=== PATIENT | female | born 1955 | race Caucasian/White ===

== ENCOUNTER → 2021-05-21 13:07 | Outpatient (BNVA) | payer BC, SELFPAY | PROVIDERS: PCP Internal Medicine; Visit Provider Hospitalist ==

== ENCOUNTER → 2021-07-28 19:51 | Outpatient (REF) | payer BC, MEDICARE, SELFPAY | LOC: HO.SL 19:51 | PROVIDERS: PCP Internal Medicine; Visit Provider Hospitalist | DX: G47.33 Obstructive sleep apnea (adult) (pediatric) (principal) | CPT/HCPCS: 95810 ==

== ENCOUNTER → 2021-09-15 14:04 | Outpatient (BNVA) | payer BC, MEDICARE, SELFPAY | PROVIDERS: PCP Internal Medicine; Visit Provider Hospitalist ==

== ENCOUNTER 2022-03-15 15:21 | Outpatient (REF) | payer BC, MEDICARE, SELFPAY ==
[2022-03-15 15:34] LABS: MANUAL DIFF FLAG NO
[2022-03-15 16:06] LABS: Basophils Percent Auto 0.5 % (0-2); Eosinophils Absolute Auto 0.2 X10*3/uL (0.0-0.4); Eosinophils Percent Auto 3.3 % (0-4); Hematocrit 43.3 % (37.0-47.0); Imm Gran Abs Auto 0.02 X10*3/uL (0.00-0.03); Imm Gran Pct Auto 0.3 % (0.0-0.4); Lymphocytes Absolute Auto 2.2 X10*3/uL (1.2-4.9); Mean Corpuscular HGB Conc 32.3 g/dl (31.0-35.0); Mean Corpuscular Hemoglobin 30.2 pg (27.0-33.0); Mean Corpuscular Volume 93.5 fL (80.0-98.0); Mean Platelet Volume 10.7 fL (9.4-12.3); Monocytes Absolute Auto 0.6 X10*3/uL (0.1-1.2); Monocytes Percent Auto 9.2 % (2-11); Neutrophils Absolute Auto 3.4 x10*3/uL (2.0-8.3); Neutrophils Percent Auto 52.7 % (45-73); Platelet Count 272 X10*3/uL (160-400); Red Blood Count 4.63 X10*6/uL (4.20-5.50); Red Cell Distribution Width 14.4 % (11.0-16.0); White Blood Count 6.4 X10*3/uL (4.8-10.8)
[2022-03-15 16:24] LABS: Anion Gap 13 (12-20); Blood Urea Nitrogen 17 mg/dL (9-16); Calcium 9.3 mg/dL (8.4-10.2); Carbon Dioxide 29 mmol/L (22-29); Chloride 103 mmol/L (96-108); Estimated Glomerular Filt Rate > 60; Glucose Random 117 mg/dL (60-115); Potassium 4.7 mmol/L (3.3-5.1); Sodium 140 mmol/L (135-145)
[2022-03-15 17:39] LABS: Erythrocyte Sedimentation Rate 7 MM/HR (0-20)
[2022-03-17 18:56] LABS: Anti Nuclear Antibody Screen NEGATIVE (NEGATIVE)
== END 2022-03-15 15:22 | disposition home or self-care (01) ==
LOC: HO.LAB 15:21
PROVIDERS: PCP Internal Medicine; Visit Provider Hospitalist
DX: R53.83 Other fatigue (principal)
CPT/HCPCS: 36415; 80048; 82164; 85025; 85652; 86038; 86039

== ENCOUNTER 2022-08-11 11:08 | Outpatient (REF) | payer BC, MEDICARE, SELFPAY ==
[2022-08-11 11:22] LABS: MANUAL DIFF FLAG NO
[2022-08-11 12:25] LABS: Basophils Percent Auto 0.5 % (0-2); Eosinophils Absolute Auto 0.2 X10*3/uL (0.0-0.4); Eosinophils Percent Auto 3.6 % (0-4); Hematocrit 41.8 % (37.0-47.0); Hemoglobin 13.4 g/dl (12.0-16.0); Imm Gran Abs Auto 0.01 X10*3/uL (0.00-0.03); Imm Gran Pct Auto 0.2 % (0.0-0.4); Lymphocytes Absolute Auto 2.1 X10*3/uL (1.2-4.9); Lymphocytes Percent Auto 38.1 % (20-40); Mean Corpuscular HGB Conc 32.1 g/dl (31.0-35.0); Mean Corpuscular Hemoglobin 28.8 pg (27.0-33.0); Mean Corpuscular Volume 89.9 fL (80.0-98.0); Mean Platelet Volume 10.5 fL (9.4-12.3); Monocytes Absolute Auto 0.5 X10*3/uL (0.1-1.2); Monocytes Percent Auto 9.1 % (2-11); Neutrophils Absolute Auto 2.7 x10*3/uL (2.0-8.3); Neutrophils Percent Auto 48.5 % (45-73); Platelet Count 274 X10*3/uL (160-400); Red Blood Count 4.65 X10*6/uL (4.20-5.50); Red Cell Distribution Width 14.4 % (11.0-16.0); White Blood Count 5.6 X10*3/uL (4.8-10.8)
[2022-08-11 13:08] LABS: Erythrocyte Sedimentation Rate 7 MM/HR (0-20)
== END 2022-08-11 11:09 | disposition home or self-care (01) ==
LOC: HO.LAB 11:08
PROVIDERS: PCP Internal Medicine; Visit Provider Hospitalist
DX: R06.1 Stridor (principal)
CPT/HCPCS: 36415; 82785; 85025; 85652; 86003; 86160

== ENCOUNTER 2022-08-19 09:20 | Outpatient (REF) | payer BC, MEDICARE, SELFPAY ==
--- NOTE | ~2022-08-19 | CT_ITS ---
EXAMINATION: CT SOFT TISSUE NECK WITHOUT CONTRAST CLINICAL INFORMATION: Stridor. Dysphagia. COMPARISON: Barium swallow from 05/22/2020. TECHNIQUE: Multidetector helical imaging was performed in the axial plane without intravenous contrast. Multiple axial reformats and coronal/sagittal reconstructions were created the technologist workstation for review. This CT examination was performed using dose optimization techniques as appropriate, variously including the following: *Automated exposure control. *Adjustment of mA and/or kV according to patient size (this includes techniques or standardized protocols for targeted exams where dose is matched to indication/reason for exam; i.e. extremities or head). *Use of iterative reconstruction technique. DLP: 511 mGy-cm FINDINGS: Instrumented anterior fusion of C5-C7 with corpectomy cage in place of C6. There is anatomic alignment of the cervical spine. Moderate degenerative arthropathy of the atlantodental articulation. Moderate degenerative disc disease at C3-C4, C4-C5, and C7-T1. Facet and uncovertebral joint arthropathy leads to osseous encroachment on the neural foramina from C3-T1. No significant cutaneous thickening or subcutaneous inflammation. No discrete fluid collection within the deep tissues of the neck. The premaxillary, retromaxillary, pterygopalatine fossa, orbital apical, parapharyngeal, and prelaryngeal adipose tissue is maintained. Normal appearance of the parotid and submandibular glands. There is a 0.8 cm hypoattenuating nodule in the lower pole the right thyroid lobe (no follow-up imaging recommended based on current guidelines at the time of examination). No additional demonstrated abnormalities of the thyroid gland. Scattered subcentimeter lymph nodes bilaterally, none of which are pathologically enlarged. No demonstrated focal lesions within the intrinsic tissues of the tongue or floor of mouth. Normal mucosal contours of the pharynx and larynx. Normal appearance of the hyoid bone, thyroid cartilage, or cartilaginous trachea. The airways remains widely patent. No radiopaque foreign bodies. The atlantooccipital and atlantoaxial articulations remain well aligned. There is anatomic alignment of the vertebral bodies and posterior elements. No evidence of acute fracture or subluxation of the cervical spine. The vertebral body heights are maintained. The intervertebral disc spaces are maintained. There is no prevertebral soft tissue swelling. The visualized portion of the skull base is without significant abnormalities. Mild mucosal thickening of the visualized paranasal sinuses. The mastoid air cells and middle ear cavities are clear. The maxillary teeth are absent. CT Upper Chest: The visualized lung apices and upper mediastinum are within normal limits. CT/CT soft tissue neck wo IV con IMPRESSION: 1. Instrumented anterior fusion of C5-C7 with corpectomy cage in place of C6. Moderate multilevel degenerative spondyloarthropathy of the cervical spine. 2. No demonstrated focal lesion, collection, or lymphadenopathy within the soft tissues of the neck.
== END 2022-08-19 09:21 | disposition home or self-care (01) ==
LOC: HO.CT 09:20
PROVIDERS: PCP Internal Medicine; Visit Provider Hospitalist
DX: R06.1 Stridor (principal)
CPT/HCPCS: 70490

== ENCOUNTER → 2022-11-11 14:54 | Outpatient (BNVA) | payer BC, MEDICARE, SELFPAY | PROVIDERS: PCP Internal Medicine; Visit Provider Hospitalist | DX: R53.83 Other fatigue (principal) ==

== ENCOUNTER → 2023-01-20 14:45 | Outpatient (BNVA) | payer BC, MEDICARE, SELFPAY | PROVIDERS: PCP Internal Medicine; Visit Provider Hospitalist ==

== ENCOUNTER 2023-03-02 07:29 | Outpatient (REF) | payer BC, MEDICARE, SELFPAY ==
--- NOTE | ~2023-03-02 | XR_ITS ---
EXAMINATION: XR KNEE, RIGHT XR KNEE AP STANDING CLINICAL INFORMATION: Pain. COMPARISON: None available. TECHNIQUE: Lateral and axial views of the right knee were obtained. AP bilateral standing view of the knees was obtained. FINDINGS: Bony mineralization is normal. There is marked asymmetric narrowing of the right knee medial joint space compartment. The lateral joint space compartment of the right knee is well-maintained, with articular surface irregularity and peripheral osteophyte formation. There is chondrocalcinosis. There is marked narrowing of the right patellofemoral compartment, with peripheral osteophyte formation. No fracture, dislocation or right knee joint effusion is seen. The left knee shows moderate narrowing of the medial joint space compartment, and a well-maintained lateral joint space compartment. There is again chondrocalcinosis. There is a mild bilateral varus configuration. XR/XR knee RT 2V IMPRESSION: 1. There is tricompartment osteoarthritic change of the right knee, most severe of the medial and patellofemoral compartments. 2. There is moderate osteoarthritic change of the medial joint space compartment of the left knee. 3. There is a mild varus configuration. 4. There is chondrocalcinosis, which can be associated with CPPD.
--- NOTE | ~2023-03-02 | XR_ITS ---
EXAMINATION: XR KNEE, RIGHT XR KNEE AP STANDING CLINICAL INFORMATION: Pain. COMPARISON: None available. TECHNIQUE: Lateral and axial views of the right knee were obtained. AP bilateral standing view of the knees was obtained. FINDINGS: Bony mineralization is normal. There is marked asymmetric narrowing of the right knee medial joint space compartment. The lateral joint space compartment of the right knee is well-maintained, with articular surface irregularity and peripheral osteophyte formation. There is chondrocalcinosis. There is marked narrowing of the right patellofemoral compartment, with peripheral osteophyte formation. No fracture, dislocation or right knee joint effusion is seen. The left knee shows moderate narrowing of the medial joint space compartment, and a well-maintained lateral joint space compartment. There is again chondrocalcinosis. There is a mild bilateral varus configuration. XR/XR knee standing BI IMPRESSION: 1. There is tricompartment osteoarthritic change of the right knee, most severe of the medial and patellofemoral compartments. 2. There is moderate osteoarthritic change of the medial joint space compartment of the left knee. 3. There is a mild varus configuration. 4. There is chondrocalcinosis, which can be associated with CPPD.
== END 2023-03-02 07:30 | disposition home or self-care (01) ==
LOC: HO.HOSX 07:29
PROVIDERS: Visit Provider Orthopaedic Surgery
DX: M25.561 Pain in right knee (principal); M25.562 Pain in left knee
CPT/HCPCS: 73560; 73565

== ENCOUNTER → 2023-03-03 08:14 | Outpatient (BNVA) | payer BC, MEDICARE, SELFPAY | PROVIDERS: PCP Internal Medicine; Visit Provider Orthopaedic Surgery | DX: M17.0 Bilateral primary osteoarthritis of knee (principal) | CPT/HCPCS: 20610; J3301 ==

== ENCOUNTER 2023-05-23 09:40 | Outpatient (AMB) | payer BC, MEDICARE, SELFPAY ==
--- NOTE | 2023-05-23 09:45 | A.OFFVIS_ITS ---
Intake Vital Signs 05/23/23 09:46 Height 5 ft 6 in Weight 279 lb 15.793 oz BMI 45.2 Pulse 87 Pulse Source Pulse Oximeter Pulse Oximetry (%) 98 Oxygen Delivery Method Room Air Intake Visit Reasons: Sleep apnea Wrapping Machine Tender Required: No Allergies atorvastatin [Lipitor] Allergy (Severe, Verified 05/23/23 09:47) Muscle Spasm cephalexin Allergy (Severe, Verified 05/23/23 09:47) Rash Povidone-Iodine Allergy (Severe, Uncoded 05/23/23 09:47) Rash Sulfa Drugs Allergy (Severe, Uncoded 05/23/23 09:47) Rash HPI HPI Comments History of Present Illness Details The patient is a 68-year-old woman with a known history of carcinoid. Ultimately had abnormal findings of lymphadenopathy a along with FDG uptake in [place] and was recommended to undergo endobronchial ultrasound bronchoscopy. The fine- needle aspirate was positive for non-necrotizing granulomas suspicious for sarcoidosis. She at that time she was having some cardiac symptoms with palpitations and shortness of breath and the recommendation of the time was to follow up with a evaluation for cardiac sarcoid. It is not clear if the patient did have a dedicated cardiac PET or a cardiac MRI. Her symptoms did improve and she was able to come off the prednisone safely. At this point the concern is that she is still having issues with her active carcinoid. She is going to go undergo additional therapies to see if she has to candidate for alternative therapies at this time. During the last visit she was started on Trelegy with good effect. Her respiratory status has significantly improved. She also started Singulair which also helped her allergies. We did try treating her nasal passages with budesonide rinsing, but, she could not tolerate the therapy after 4 days because of severe headaches. Otherwise patient is doing well will be following up in [place] for additional therapies and evaluation for her carcinoid. She did have [place] [facility] [place] did I do not have the results. She was told that there is no evidence of any active disease anywhere. The patient will undergo endoscopy suite GI to further address the question. In the meantime the question of the sarcoid. We'll have to review the PET scan to see if there's any mediastinal activity like she had in the past. It is possible that this is dormant now. The patient also has some lightheadedness and nausea sensation. It appears that she has a little nystagmus on examination. ? 09/15/2021 the patient is here for a pulmonary follow-up visit. Overall she has been doing well. She still continues to have daytime drowsiness. Her Roosevelt score is elevated 13/24. She did have a sleep study demonstrating significant REM related sleep disorder with an elevated AHI consistent moderate to severe LENA. the patient needs to start PAP therapy AMILCAR. She understands that there is a supply demand issue now with the pandemic. But, will get her a machine as soon as possible. In the meantime she continues use respiratory therapy although she still complains of dyspnea and chest tightness. The patient responded well to Trelegy in the past but was not covered. Will go ahead and add Spiriva to her current regimen of Dulera. I am hopeful that her daytime drowsiness is improves. If the patient continues with daytime drowsiness even after effectively treating his sleep apnea then we can discuss the question of the use stimulant therapy. She had use Ritalin in the past but she did not feel comfortable using it. 03/17/2022 the patient is here for a pulmonary follow-up visit. Today she is extremely fatigued. She cannot drive so therefore has been a drinker. She continues to have significant daytime drowsiness. She has been using her CPAP. The CPAP therapy has been affecting beneficial. She is using more than 4 hours a night in her AHI is within normal limits. She continues to have persistent daytime drowsiness even after effective PAP therapy. She is on Ritalin. She is supposed to use it twice a day but she has been concerned about doing so. The patient also appears to be pale. Will go ahead and check some blood work including her hemoglobin to make sure that is not anemia related. But if not I will call her to see if she can increase the Ritalin to twice a day. If the Ritalin is not effective then she should speak to her provider in [place] about switching her to Nuvigil as an alternative. In the meantime she continues to be on the octreotide for her carcinoid next Plain to her that this is likely the culprit of her ongoing Clamminess and tiredness. The patient continues with respiratory therapy. Denies any shortness of breath or any wheezing or tightness. Asthma appears to be in good control. 05/13/2022 the patient is here for a pulmonary follow-up visit. Since we last spoke she did increase the Ritalin to twice a day. She did notice a slight improvement in her energy but still with significant fatigue. The patient does have to take naps during the daytime. She does fall asleep. His Roosevelt score significantly elevated at 15 over 24. she is using her CPAP. However, she averages only about 4 hours. Partly is because she has a hard time falling asleep. She did have the Ambien but she is not using it as much because she is wondering if that is making her tired. We talked about other stimulants. At this point since she has tried and failed the full dose of Ritalin go ahead and switch her to a different type of stimulant such as Nuvigil. I will send the prescription to the pharmacy. In the meantime under download of her CPAP her AHI is below 5. However, it is averaging at 4.5. Her average pressure is closer to 12 cm. Therefore I will increase her minimum pressure from 8-10 cm. She is going to try the higher pressure. If she has any difficulties tolerating it she will call me in a adjusted back down. I am hopeful that we can maximize her CPAP therapy. Patient also understands that she needs to be able to sleep at least 6 hours. Therefore she should try not to nap during the daytime. We did review all her blood work which was all reassuring. She continues on the octreotide for her carcinoid. 07/08/2022 the patient is here for a pulmonary follow-up visit. Overall she is doing a little better. She responded positively to the Nuvigil. She is currently taking 150 mg in the morning. She is no longer using the Ambien which is excellent. She is tolerating her CPAP although she does complaint sometimes the mask this largest and causes her to choke up. The mask is old and hopefully the new mask would fit better. If not then I did recommend she can meet with the [facility] for mask clinic and refitting. The patient was recently diagnosed with diabetes. She is wondering if her sugar was could result in the sweating in the ongoing constitutional symptoms that she had been describing. She is working closely with Endocrinology. She still complains of dyspnea on exertion and also complains of daytime drowsiness. Her Roosevelt score still elevated at 8 over 24. but at this point do not want increase her medication further. She is actually exercising she is losing weight which is reassuring as well. I do believe that all these are positive changes that will help her. 08/11/2022 the patient is here for sick visit. For the last 2 weeks she has been having sudden onset shortness of breath. Difficult to breathe then and also breathe out. Feels like she is choking. Has a hard time speaking with she is having episode. The episodes have been a different times of the day. Sometimes she is sleeping and sometimes she is awake. Not related to eating. She has noticed increased itchiness of her skin. She denies any evidence of any angioedema although not sure. Denies any itching send her mouth. The patient has never had any evidence of any anaphylaxis. She does describe evidence of stridor when she is having the episodes. She does try to use her inhaler but is not helpful. Usually the symptoms last for several minutes and then subside. Sometimes she can have an episode followed by another 1 that makes a very scary for her. She had call the office and have recommended she go to the ER. In the mid appointment today. She did not have to go to the ER however. Today she does feel better. She has not had an episode today. Explained to the patient that it appears that these are either episodes of laryngeal spasms Versus localized angioedema. She has been taking Zyrtec with some improvement of the symptoms. I will provide her with an EpiPen just in case she has an episode that does not break. I did have our nurse teacher in the office to make sure. Will also and have her undergo blood work including allergy testing. The patient already is taking gabapentin. The patient does have a history of carcinoid tumor. She is wondering if this is related. Will have her undergo a CT scan of the neck soft tissue to assess for any evidence of any carcinoid in the proximity of the airway. The meantime she is going to continue the reflux diet and will start sleeping elevated in using nasal rinsing. If the patient continues having episodes then ENT evaluation or endoscopy may be warranted. 11/12/2022 the patient is here for a pulmonary follow-up visit. She has multiple complaints. First the Nuvigil was very effective in treating her chronic fatigue. However, now she has not been able to get it. We switched over to Provigil and has not been the same. She is wondering if she should go back on the Ritalin that seem to be working better for her. Will go ahead and plan to increase her Provigil to the 200 mg doses see this is more effective. In the meantime will also to see if we can try to get her on the correct medication. Unfortunately he has been on back order at multiple pharmacies. In the meantime she is also struggling with her sleep. She had weaned off the Ambien but now feels that she does need the Ambien to fall asleep. Otherwise she is not having effective sleep. I do believe that using the Ambien as needed would be okay for now. But hopefully as she increases the from visual or goes back on the initial stimulant then hopefully she will needed as much. When she does sleep she does use her CPAP. The CPAP therapy continues to be affecting beneficial she does use more than 4 hours a night. The need to request a download to assess the effectiveness of the therapy. As part of the workup the patient did undergo an echocardiogram. It was will limited windows do likely body habitus. The patient does appear to have a slightly mild dilated right ventricle although the pulmonary pressures could not be estimated. We did talk about underlying pulmonary hypertension and she has multiple reasons to have some pulmonary hypertension including minimal diastolic dysfunction and also underlying sleep apnea that may and may not be treated effectively if she is not sleeping well. Therefore, hopefully will get her to sleep better and will req uest a download to make sure she is getting effective therapy and she will follow up with Cardiology. 05/23/2023 the patient is here for a sick visit. He has been having worsening respiratory symptoms. The patient did recover from COVID-19. He has been having increasing dyspnea on exertion. She is also documented a lower pulse ox and normal for her. She was evaluated by primary care who placed her on antibiotics and prednisone after her COVID infection. However no significant improvement. She was also having other constitutional symptoms. She did undergo additional imaging studies for her brain and also underwent a CT scan of the chest at [facility]. I did personally reviewed. The patient did have small subcentimeter pulmonary nodules that will require a repeat CT scan in a year's time. In addition to that the patient had a dilated pulmonary trunk again suggesting pulmonary hypertension. She does have increased lower extremity edema. Therefore do believe that additional diuresis his champagne in view of her right-sided volume overload status. This could definitely be contributing to her dyspnea symptoms. The patient did go for 6 minute walk test. It was noted that she was very tachycardic but her pulse ox was stable which is reassuring. In view of her symptoms and findings we did have her undergo a blood work including a D-dimer which was indeed elevated. I did contact the patient about it the patient will be scheduled to undergo a urgent CTA to rule out blood clots. In the meantime she is aware that if her symptoms worsen she is to go to the ER to get an emergent CTA. the patient also has been struggling with her CPAP mask. The strap in the back has been hurting her neck and she has a hard time sleeping. We did provide her with an N30 I mask which has a different head gear and may hopefully minimize her neck discomfort. She knows to get a chinstrap in order for it to be more effective for her. [facility] Medical History (Updated 05/23/23 @ 19:56 by George Masters MD) CHF (congestive heart failure) Pulmonary hypertension Stridor Has daytime drowsiness Fatigue Sarcoidosis Carcinoid tumor Asthma LENA (obstructive sleep apnea) Social History (Updated 05/21/21 @ 13:31 by Noa Gerber Kashif) Patient Tobacco Use Status: Never used Tobacco Review of Systems Const Reports daytime sleepiness, Reports difficulty sleeping, Denies night sweats, Denies snoring and Reports weight loss ENT Denies change in voice, Denies lip swelling, Denies mouth pain, Reports nasal congestion, Reports nasal discharge and Denies tongue swelling Card Reports chest pain, Reports leg edema, Reports palpitations, Reports dyspnea and Reports dyspnea on exertion Resp Reports cough, Reports pain on inspiration, Reports pain with cough, Reports dyspnea, Reports dyspnea on exertion and Denies snoring GI Denies abdominal pain Musc Denies no additional complaints Neuro Denies Neuro-related abnormal movements Psych Denies no additional complaints Endo Reports flushing and Reports palpitations Steve/Lymph Denies easy bleeding and Denies lymphadenopathy Aller/Immun Denies lip swelling and Denies tongue swelling Physical Exam Vital Signs: Last Vital Signs Pulse 87 05/23/23 09:46 Pulse Ox 98 05/23/23 09:46 Oxygen Delivery Method Room Air 05/23/23 09:46 BMI result Body Mass Index 45.2 Const General: comfortable Nutritional Appearance: overweight Neck Neck: Yes normal visual inspection, Yes full ROM and Yes no lymphadenopathy Chest Chest palpation & inspection: normal inspection of the chest Resp Auscultation: diminished lung sounds Cardio Rate: regular rate Rhythm: regular rhythm Heart sounds: S1 normal heart sound present and S2 normal heart sound present GI Palpation (GI): Soft to palpation and nontender Auscultation: normal bowel sounds Skin General skin exam: rashes and/or lesions noted Extrem General: No clubbing, No cyanosis and Yes edema Assessment & Plan Assessment & Plan (1) LENA (obstructive sleep apnea): Code(s): G47.33 - Obstructive sleep apnea (adult) (pediatric) (2) Asthma: Code(s): J45.909 - Unspecified asthma, uncomplicated Qualifiers: Asthma complication type: uncomplicated Asthma persistence: persistent Asthma severity: moderate Qualified Code(s): J45.40 - Moderate persistent asthma, uncomplicated (3) Carcinoid tumor: Comment: On Octrotide. The adherace has been hard for the patient Code(s): D3A.00 - Benign carcinoid tumor of unspecified site Qualifiers: Carcinoid tumor location: unspecified site Carcinoid tumor malignancy status: benign Qualified Code(s): D3A.00 - Benign carcinoid tumor of unspecified site (4) Has daytime drowsiness: Code(s): R40.0 - Somnolence (5) Pulmonary hypertension: Comment: mild RV dilation, but could not estimate PA pressures. Code(s): I27.20 - Pulmonary hypertension, unspecified (6) Chest pain: Code(s): R07.9 - Chest pain, unspecified (7) Blood D-dimer assay positive: Code(s): R78.89 - Finding of other specified substances, not normally found in blood Plan Bloodwork with +ddimer, will request CTA Increase lasix x 3 days continue Zyrtec continue Trazodone for sleep Continue singular continue Dulera continue Spiriva short-acting beta agonist as needed weight management continue APAP 10-18, trial N30i mask continue Provigil 200mg follow-up in 4-6 months Orders: Orders Venous Blood Gas Today I27.20 - Pulmonary hypertension, unspecified, I50.9 - Heart failure, unspecified, R07.9 - Chest pain, unspecified Complete Blood Count Auto Diff Today I27.20 - Pulmonary hypertension, unspecified, I50.9 - Heart failure, unspecified, R07.9 - Chest pain, unspecified B Type Natriuretic Peptide Today I27.20 - Pulmonary hypertension, unspecified, I50.9 - Heart failure, unspecified, R07.9 - Chest pain, unspecified Basic Metabolic Panel Today I27.20 - Pulmonary hypertension, unspecified, I50.9 - Heart failure, unspecified, R07.9 - Chest pain, unspecified Troponin-I High Sensitivity Today I27.20 - Pulmonary hypertension, unspecified, I50.9 - Heart failure, unspecified, R07.9 - Chest pain, unspecified D Dimer High Sensitivity Today I27.20 - Pulmonary hypertension, unspecified, I50.9 - Heart failure, unspecified, R07.9 - Chest pain, unspecified Erythrocyte Sedimentation Rate Today I27.20 - Pulmonary hypertension, unspecified, I50.9 - Heart failure, unspecified, R07.9 - Chest pain, unspecified Medications: New furosemide (Lasix) 20 mg PO DAILY PRN 14 tabs 0RF edema 14 days Coding Level of Care Code Est Pt Level 5 (03950) Diagnoses LENA (obstructive sleep apnea) G47.33 Moderate persistent asthma without complication J45.40 Asthma complication type: uncomplicated Asthma persistence: persistent Asthma severity: moderate Benign carcinoid tumor, unspecified site D3A.00 Carcinoid tumor location: unspecified site Carcinoid tumor malignancy status: benign Has daytime drowsiness R40.0 Pulmonary hypertension I27.20 Chest pain R07.9 Blood D-dimer assay positive R78.89 Time Spent (min) 60
[2023-05-23 09:46] VITALS: PULSE 87; O2SAT 98; BMI 45.2
== END 2023-05-23 10:28 | disposition home or self-care (01) ==
PROVIDERS: PCP Internal Medicine; Visit Provider Hospitalist
DX: G47.33 Obstructive sleep apnea (adult) (pediatric) (principal); J45.40 Moderate persistent asthma, uncomplicated; D3A.00 Benign carcinoid tumor of unspecified site; R40.0 Somnolence
CPT/HCPCS: 99215

== ENCOUNTER 2023-05-23 09:40 | Outpatient (REF) | payer BC, MEDICARE, SELFPAY ==
[2023-05-23 10:55] LABS: MANUAL DIFF FLAG NO
[2023-05-23 11:08] LABS: Basophils Percent Auto 0.4 % (0-2); Eosinophils Absolute Auto 0.1 X10*3/uL (0.0-0.4); Eosinophils Percent Auto 2.7 % (0-4); Hematocrit 40.2 % (37.0-47.0); Imm Gran Abs Auto 0.01 X10*3/uL (0.00-0.03); Imm Gran Pct Auto 0.2 % (0.0-0.4); Lymphocytes Absolute Auto 1.6 X10*3/uL (1.2-4.9); Lymphocytes Percent Auto 35.2 % (20-40); Mean Corpuscular HGB Conc 32.3 g/dl (31.0-35.0); Mean Corpuscular Volume 89.7 fL (80.0-98.0); Mean Platelet Volume 9.9 fL (9.4-12.3); Monocytes Absolute Auto 0.5 X10*3/uL (0.1-1.2); Monocytes Percent Auto 11.3 % (2-11); Neutrophils Absolute Auto 2.3 x10*3/uL (2.0-8.3); Neutrophils Percent Auto 50.2 % (45-73); Platelet Count 279 X10*3/uL (160-400); Red Blood Count 4.48 X10*6/uL (4.20-5.50); Red Cell Distribution Width 13.8 % (11.0-16.0); White Blood Count 4.5 X10*3/uL (4.8-10.8)
[2023-05-23 11:10] LABS: VBG Base Excess 3.4 mmol/L; VBG HCO3 28 mmol/L (22-26); VBG pCO2 45 mmHg; VBG pO2 36 mmHg
[2023-05-23 11:30] LABS: D Dimer High Sensitivity 293 NG/ML
[2023-05-23 11:31] LABS: Anion Gap 15 (12-20); B Type Natriuretic Peptide 32 pg/mL (<100); Blood Urea Nitrogen 12 mg/dL (9-16); Calcium 9.7 mg/dL (8.4-10.2); Carbon Dioxide 25 mmol/L (22-29); Chloride 107 mmol/L (96-108); Estimated Glomerular Filt Rate > 60; Glucose Random 118 mg/dL (60-115); Potassium 3.6 mmol/L (3.3-5.1); Sodium 143 mmol/L (135-145)
[2023-05-23 11:34] LABS: Troponin-I High Sensitivity < 2.7 ng/L (<3.5-17.0)
[2023-05-23 11:59] LABS: Erythrocyte Sedimentation Rate 16 MM/HR (0-20)
[2023-05-23 12:11] LABS: Venous Blood Gas Refer to POC result
== END 2023-05-23 09:41 | disposition home or self-care (01) ==
LOC: HO.LAB 09:40
PROVIDERS: PCP Internal Medicine; Visit Provider Hospitalist
DX: I50.9 Heart failure, unspecified (principal); I27.20 Pulmonary hypertension, unspecified; R07.9 Chest pain, unspecified; R06.00 Dyspnea, unspecified; G47.33 Obstructive sleep apnea (adult) (pediatric); J45.40 Moderate persistent asthma, uncomplicated; D3A.00 Benign carcinoid tumor of unspecified site; R40.0 Somnolence; R78.89 Finding of other specified substances, not normally found in blood
CPT/HCPCS: 36415; 80048; 82803; 83880; 84484; 85025; 85379; 85652

== ENCOUNTER 2023-05-24 15:05 | Outpatient (REF) | payer BC, MEDICARE, SELFPAY ==
--- NOTE | ~2023-05-24 | CT_ITS ---
EXAMINATION: CT ANGIOGRAM OF THE CHEST WITH AND WITHOUT CONTRAST (CT PULMONARY ANGIOGRAM FOR PE) CLINICAL INFORMATION: Reason for Exam R07.9 - Chest pain, unspecified COMPARISON: None available. TECHNIQUE: Prior to contrast administration, noncontrast localization images were obtained. Subsequently, multidetector volumetric imaging was performed from the thoracic inlet to below the diaphragms following the administration of 65 mL Omnipaque 350 intravenous contrast. No contrast reaction reported Sagittal, coronal, and MIP oblique sagittal reformatted images were obtained on the CT workstation, uploaded to PACS, and reviewed. This CT examination was performed using dose optimization techniques as appropriate, variously including the following: *Automated exposure control *Adjustment of mA and/or kV according to patient size (this includes techniques or standardized protocols for targeted exams where dose is matched to indication/reason for exam; i.e. extremities or head) *Use of iterative reconstruction technique Total exam dose-length product 197 mGy-cm FINDINGS: QUALITY OF STUDY/CONTRAST BOLUS: Satisfactory. PULMONARY ARTERIES: No pulmonary emboli. THORACIC AORTA: No aneurysm. LUNG: No focal consolidation, nodules or masses. Low lung volumes and atelectasis PLEURA: No pleural effusion or pneumothorax. MEDIASTINUM: Normal heart size. No pericardial effusion. No hilar or mediastinal lymphadenopathy. No evidence of septal bowing or right heart strain. 1.5 x 2 cm right thyroid nodule. CORONARY ARTERY CALCIFICATION: None visualized on this study. CHEST WALL/AXILLA: No axillary or internal mammary lymphadenopathy. OSSEOUS STRUCTURES: No acute or suspicious osseous abnormality. Degenerative changes thoracic spine. Postsurgical changes to the cervical spine. UPPER ABDOMEN: 1 cm low-attenuation lesion difficult to characterize. Gallbladder has been removed. No reflux of contrast into the hepatic veins to suggest elevated right heart pressures. CT/CT angio chest PE protocol IMPRESSION: No evidence of pulmonary embolism. Low lung volumes and dependent atelectasis at the lung bases. 1.5 x 2 cm right thyroid nodule. Follow-up thyroid ultrasound recommended. VTE: negative
[2023-05-24] MEDS: iohexoL 350 MG/ML 100 ML INFUS..BTL 65 ML IV (15:51)
== END 2023-05-24 15:06 | disposition home or self-care (01) ==
LOC: HO.CT 15:05
PROVIDERS: PCP Internal Medicine; Visit Provider Hospitalist
DX: R07.9 Chest pain, unspecified (principal)
CPT/HCPCS: 71275; Q9967

== ENCOUNTER 2023-09-01 13:09 | Outpatient (AMB) | payer BC, MEDICARE, SELFPAY ==
--- NOTE | 2023-09-01 13:15 | MHC.OFFVIS ---
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 Ultimately had abnormal findings of lymphadenopathy a along with FDG uptake in [place] and was recommended to undergo endobronchial ultrasound bronchoscopy. The fine-needle aspirate was positive for non-necrotizing granulomas suspicious for sarcoidosis. She at that time she was having some cardiac symptoms with palpitations and shortness of breath and the recommendation of the time was to follow up with a evaluation for cardiac sarcoid. It is not clear if the patient did have a dedicated cardiac PET or a cardiac MRI. Her symptoms did improve and she was able to come off the prednisone safely. At this point the concern is that she is still having issues with her active carcinoid. She is going to go undergo additional therapies to see if she has to candidate for alternative therapies at this time. During the last visit she was started on Trelegy with good effect. Her respiratory status has significantly improved. She also started Singulair which also helped her allergies. We did try treating her nasal passages with budesonide rinsing, but, she could not tolerate the therapy after 4 days because of severe headaches. Otherwise patient is doing well will be following up in [place] for additional therapies and evaluation for her carcinoid. She did have a PET scan at [facility] she did I do not have the results. She was told that there is no evidence of any active disease anywhere. The patient will undergo endoscopy suite GI to further address the question. In the meantime the question of the sarcoid. We'll have to review the PET scan to see if there's any mediastinal activity like she had in the past. It is possible that this is dormant now. The patient also has some lightheadedness and nausea sensation. It appears that she has a little nystagmus on examination. ? 07/08/2022 the patient is here for a pulmonary follow-up visit. Overall she is doing a little better. She responded positively to the Nuvigil. She is currently taking 150 mg in the morning. She is no longer using the Ambien which is excellent. She is tolerating her CPAP although she does complaint sometimes the mask this largest and causes her to choke up. The mask is old and hopefully the new mask would fit better. If not then I did recommend she can meet with the [facility] for mask clinic and refitting. The patient was recently diagnosed with diabetes. She is wondering if her sugar was could result in the sweating in the ongoing constitutional symptoms that she had been describing. She is working closely with Endocrinology. She still complains of dyspnea on exertion and also complains of daytime drowsiness. Her [place] score still elevated at 8 over 24. but at this point do not want increase her medication further. She is actually exercising she is losing weight which is reassuring as well. I do believe that all these are positive changes that will help her. 11/12/2022 the patient is here for a pulmonary follow-up visit. She has multiple complaints. First the Nuvigil was very effective in treating her chronic fatigue. However, now she has not been able to get it. We switched over to Provigil and has not been the same. She is wondering if she should go back on the Ritalin that seem to be working better for her. Will go ahead and plan to increase her Provigil to the 200 mg doses see this is more effective. In the meantime will also to see if we can try to get her on the correct medication. Unfortunately he has been on back order at multiple pharmacies. In the meantime she is also struggling with her sleep. She had weaned off the Ambien but now feels that she does need the Ambien to fall asleep. Otherwise she is not having effective sleep. I do believe that using the Ambien as needed would be okay for now. But hopefully as she increases the from visual or goes back on the initial stimulant then hopefully she will needed as much. When she does sleep she does use her CPAP. The CPAP therapy continues to be affecting beneficial she does use more than 4 hours a night. The need to request a download to assess the effectiveness of the therapy. As part of the workup the patient did undergo an echocardiogram. It was will limited windows do likely body habitus. The patient does appear to have a slightly mild dilated right ventricle although the pulmonary pressures could not be estimated. We did talk about underlying pulmonary hypertension and she has multiple reasons to have some pulmonary hypertension including minimal diastolic dysfunction and also underlying sleep apnea that may and may not be treated effectively if she is not sleeping well. Therefore, hopefully will get her to sleep better and will request a download to make sure she is getting effective therapy and she will follow up with Cardiology. 05/23/2023 the patient is here for a sick visit. He has been having worsening respiratory symptoms. The patient did recover from COVID-19. He has been having increasing dyspnea on exertion. She is also documented a lower pulse ox and normal for her. She was evaluated by primary care who placed her on antibiotics and prednisone after her COVID infection. However no significant improvement. She was also having other constitutional symptoms. She did undergo additional imaging studies for her brain and also underwent a CT scan of the chest at [facility]. I did personally reviewed. The patient did have small subcentimeter pulmonary nodules that will require a repeat CT scan in a year's time. In addition to that the patient had a dilated pulmonary trunk again suggesting pulmonary hypertension. She does have increased lower extremity edema. Therefore do believe that additional diuresis his champagne in view of her right-sided volume overload status. This could definitely be contributing to her dyspnea symptoms. The patient did go for 6 minute walk test. It was noted that she was very tachycardic but her pulse ox was stable which is reassuring. In view of her symptoms and findings we did have her undergo a blood work including a D-dimer which was indeed elevated. I did contact the patient about it the patient will be scheduled to undergo a urgent CTA to rule out blood clots. In the meantime she is aware that if her symptoms worsen she is to go to the ER to get an emergent CTA. the patient also has been struggling with her CPAP mask. The strap in the back has been hurting her neck and she has a hard time sleeping. We did provide her with an N30 I mask which has a different head gear and may hopefully minimize her neck discomfort. She knows to get a chinstrap in order for it to be more effective for her. 09/01/2023 the patient is here for a pulmonary follow-up visit. She is feeling overall a lot better. She did get a 2nd opinion regarding her carcinoid and the decision was to hold off on her octreotide therapy since her studies and blood work were reassuring. She has been off the octreotide since the summer. Her constitutional symptoms have overall improved. Her respiratory status has also improved. She also still has her inhalers although she does not require them as often. Denies significant shortness of breath. The patient did have an evaluation with me over the fall. She was having some shortness of breath and tachycardia. Her D-dimer had been elevated and we did go ahead request a CTA. No evidence of any pulmonary emboli. the patient did have some dependent atelectasis and also a thyroid nodule. She had a thyroid nodule evaluated in the past and did have a biopsy also in the past. 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 Will make a referral this time. The patient is also having significant neck pain. She is being already evaluated by Neurosurgery she may need additional surgical interventions. For now though she is doing well from a respiratory status. She continues on the Provigil since his providing some improvement. She is not using her CPAP. The patient is still having some difficulties wearing the head gear because of the neck pain and also having hard time sleeping. Will continue the medicine this time although will consider decreasing in the near future. [facility] Medical History (Updated 09/01/23 @ 13:38 by George Masters MD) Thyroid nodule CHF (congestive heart failure) Pulmonary hypertension Stridor Has daytime drowsiness Fatigue Sarcoidosis Carcinoid tumor Asthma LENA (obstructive sleep apnea) Social History (Updated 05/21/21 @ 13:31 by KEHINDE Hong) Patient Tobacco Use Status: Never used Tobacco Review of Systems Const Reports daytime sleepiness, Reports difficulty sleeping, Denies night sweats, Denies snoring and Reports weight loss ENT Denies change in voice, Denies lip swelling, Denies mouth pain, Reports nasal congestion, Reports nasal discharge, Reports neck pain and Denies tongue swelling Card Reports chest pain, Reports leg edema, Reports palpitations, Reports dyspnea and Reports dyspnea on exertion Resp Reports cough, Reports pain on inspiration, Reports pain with cough, Reports dyspnea, Reports dyspnea on exertion and Denies snoring GI Denies abdominal pain Musc Denies no additional complaints, Reports neck pain and Reports tingling Neuro Denies Neuro-related abnormal movements, Reports tingling and Reports paresthesias Psych Denies no additional complaints Endo Reports flushing and Reports palpitations Steve/Lymph Denies easy bleeding and Denies lymphadenopathy Aller/Immun Denies lip swelling and Denies tongue swelling Physical Exam Vital Signs: Last Vital Signs Pulse 89 09/01/23 13:18 Pulse Ox 94 09/01/23 13:18 Oxygen Delivery Method Room Air 09/01/23 13:18 BMI result Body Mass Index 45.2 Const General: comfortable Nutritional Appearance: overweight Neck Neck: Yes normal visual inspection, Yes full ROM and Yes no lymphadenopathy Chest Chest palpation & inspection: normal inspection of the chest Resp Effort & Inspection: normal respiratory effort Auscultation: clear to auscultation bilaterally Cardio Rate: regular rate Rhythm: regular rhythm Heart sounds: S1 normal heart sound present and S2 normal heart sound present GI Palpation (GI): Soft to palpation and nontender Auscultation: normal bowel sounds Skin General skin exam: rashes and/or lesions noted Extrem General: No clubbing, No cyanosis and Yes edema Assessment & Plan Assessment & Plan (1) LENA (obstructive sleep apnea): Code(s): G47.33 - Obstructive sleep apnea (adult) (pediatric) (2) Asthma: Code(s): J45.909 - Unspecified asthma, uncomplicated Qualifiers: Asthma complication type: uncomplicated Asthma persistence: persistent Asthma severity: moderate Qualified Code(s): J45.40 - Moderate persistent asthma, uncomplicated (3) Carcinoid tumor: Comment: Now off Octrotide. Code(s): D3A.00 - Benign carcinoid tumor of unspecified site Qualifiers: Carcinoid tumor location: unspecified site Carcinoid tumor malignancy status: benign Qualified Code(s): D3A.00 - Benign carcinoid tumor of unspecified site (4) Has daytime drowsiness: Code(s): R40.0 - Somnolence (5) Pulmonary hypertension: Comment: mild RV dilation, but could not estimate PA pressures. Code(s): I27.20 - Pulmonary hypertension, unspecified (6) Thyroid nodule: Code(s): E04.1 - Nontoxic single thyroid nodule Plan continue Zyrtec continue Trazodone for sleep Continue singular continue Dulera continue Spiriva continue Tessalon pearfranco short-acting beta agonist as needed weight management should continue APAP 10-18, trial N30i mask continue Provigil 200mg Endocrine referral (Dr Crocker saw her in the past) Tessalon zachary as needed follow-up in 6-8 months Orders: Referrals Endocrinology Referral E04.1 - Nontoxic single thyroid nodule Medications: Refilled benzonatate 200 mg PO BID 30 days PRN 60 caps 6RF cough Coding Level of Care Code Est Pt Level 4 (64402) Diagnoses LENA (obstructive sleep apnea) G47.33 Moderate persistent asthma without complication J45.40 Asthma complication type: uncomplicated Asthma persistence: persistent Asthma severity: moderate Benign carcinoid tumor, unspecified site D3A.00 Carcinoid tumor location: unspecified site Carcinoid tumor malignancy status: benign Has daytime drowsiness R40.0 Pulmonary hypertension I27.20 Thyroid nodule E04.1 Time Spent (min) 17
[2023-09-01 13:18] VITALS: PULSE 89; O2SAT 94; BMI 45.2
== END 2023-09-01 13:46 | disposition home or self-care (01) ==
PROVIDERS: PCP Internal Medicine; Visit Provider Hospitalist
DX: G47.33 Obstructive sleep apnea (adult) (pediatric) (principal); J45.40 Moderate persistent asthma, uncomplicated; D3A.00 Benign carcinoid tumor of unspecified site; R40.0 Somnolence; I27.20 Pulmonary hypertension, unspecified; E04.1 Nontoxic single thyroid nodule
CPT/HCPCS: 99214

== ENCOUNTER → 2023-09-01 13:09 | Outpatient (BNVA) | payer BC, MEDICARE, SELFPAY | PROVIDERS: PCP Internal Medicine; Visit Provider Hospitalist ==

== ENCOUNTER 2024-05-03 13:08 | Outpatient (AMB) | payer BC, MEDICARE, SELFPAY ==
--- NOTE | 2024-05-03 13:12 | A.OFFVIS_ITS ---
Vital Signs 05/03/24 13:14 Height 5 ft 6 in Weight 259 lb 0.69 oz BMI 41.8 BP 118/60 Blood Pressure Location Rt brachial Position Sitting Pulse 82 Pulse Source Pulse Oximeter Pulse Oximetry (%) 98 Oxygen Delivery Method Room Air Intake Visit Reasons: Obstructive sleep apnea Allergies atorvastatin [Lipitor] Allergy (Severe, Verified 05/03/24 13:17) Muscle Spasm cephalexin Allergy (Severe, Verified 05/03/24 13:17) Rash Povidone-Iodine Allergy (Severe, Uncoded 05/03/24 13:17) Rash Sulfa Drugs Allergy (Severe, Uncoded 05/03/24 13:17) Rash HPI Comments Details: The patient is a 69-year-old woman with a known history of carcinoid. Ultimately had abnormal findings of lymphadenopathy a along with FDG uptake in [place] and was recommended to undergo endobronchial ultrasound bronchoscopy. The fine- needle aspirate was positive for non-necrotizing granulomas suspicious for sarcoidosis. She at that time she was having some cardiac symptoms with palpitations and shortness of breath and the recommendation of the time was to follow up with a evaluation for cardiac sarcoid. It is not clear if the patient did have a dedicated cardiac PET or a cardiac MRI. Her symptoms did improve and she was able to come off the prednisone safely. At this point the concern is that she is still having issues with her active carcinoid. She is going to go undergo additional therapies to see if she has to candidate for alternative therapies at this time. During the last visit she was started on Trelegy with good effect. Her respiratory status has significantly improved. She also started Singulair which also helped her allergies. We did try treating her nasal passages with budesonide rinsing, but, she could not tolerate the therapy after 4 days because of severe headaches. Otherwise patient is doing well will be following up in [place] for additional therapies and evaluation for her carcinoid. She did have a PET scan at [facility] she did I do not have the results. She was told that there is no evidence of any active disease anywhere. The patient will undergo endoscopy suite GI to further address the question. In the meantime the question of the sarcoid. We'll have to review the PET scan to see if there's any mediastinal activity like she had in the past. It is possible that this is dormant now. The patient also has some lightheadedness and nausea sensation. It appears that she has a little nystagmus on examination. ? 07/08/2022 the patient is here for a pulmonary follow-up visit. Overall she is doing a little better. She responded positively to the Nuvigil. She is currently taking 150 mg in the morning. She is no longer using the Ambien which is excellent. She is tolerating her CPAP although she does complaint sometimes the mask this largest and causes her to choke up. The mask is old and hopefully the new mask would fit better. If not then I did recommend she can meet with the [facility] for mask clinic and refitting. The patient was recently diagnosed with diabetes. She is wondering if her sugar was could result in the sweating in the ongoing constitutional symptoms that she had been describing. She is working closely with Endocrinology. She still complains of dyspnea on exertion and also complains of daytime drowsiness. Her Wood[place] score still elevated at 8 over 24. but at this point do not want increase her medication further. She is actually exercising she is losing weight which is reassuring as well. I do believe that all these are positive changes that will help her. 11/12/2022 the patient is here for a pulmonary follow-up visit. She has multiple complaints. First the Nuvigil was very effective in treating her chronic fatigue. However, now she has not been able to get it. We switched over to Provigil and has not been the same. She is wondering if she should go back on the Ritalin that seem to be working better for her. Will go ahead and plan to increase her Provigil to the 200 mg doses see this is more effective. In the meantime will also to see if we can try to get her on the correct medication. Unfortunately he has been on back order at multiple pharmacies. In the meantime she is also struggling with her sleep. She had weaned off the Ambien but now feels that she does need the Ambien to fall asleep. Otherwise she is not having effective sleep. I do believe that using the Ambien as needed would be okay for now. But hopefully as she increases the from visual or goes back on the initial stimulant then hopefully she will needed as much. When she does sleep she does use her CPAP. The CPAP therapy continues to be affecting beneficial she does use more than 4 hours a night. The need to request a download to assess the effectiveness of the therapy. As part of the workup the patient did undergo an echocardiogram. It was will limited windows do likely body habitus. The patient does appear to have a slightly mild dilated right ventricle although the pulmonary pressures could not be estimated. We did talk about underlying pulmonary hypertension and she has multiple reasons to have some pulmonary hypertension including minimal diastolic dysfunction and also underlying sleep apnea that may and may not be treated effectively if she is not sleeping well. Therefore, hopefully will get her to sleep better and will request a download to make sure she is getting effective therapy and she will follow up with Cardiology. 05/23/2023 the patient is here for a sick visit. He has been having worsening respiratory symptoms. The patient did recover from COVID-19. He has been having increasing dyspnea on exertion. She is also documented a lower pulse ox and normal for her. She was evaluated by primary care who placed her on antibiotics and prednisone after her COVID infection. However no significant improvement. She was also having other constitutional symptoms. She did undergo additional imaging studies for her brain and also underwent a CT scan of the chest at [facility]. I did personally reviewed. The patient did have small subcentimeter pulmonary nodules that will require a repeat CT scan in a year's time. In addition to that the patient had a dilated pulmonary trunk again suggesting pulmonary hypertension. She does have increased lower extremity edema. Therefore do believe that additional diuresis his champagne in view of her right-sided volume overload status. This could definitely be contributing to her dyspnea symptoms. The patient did go for 6 minute walk test. It was noted that she was very tachycardic but her pulse ox was stable which is reassuring. In view of her symptoms and findings we did have her undergo a blood work including a D-dimer which was indeed elevated. I did contact the patient about it the patient will be scheduled to undergo a urgent CTA to rule out blood clots. In the meantime she is aware that if her symptoms worsen she is to go to the ER to get an emergent CTA. the patient also has been struggling with her CPAP mask. The strap in the back has been hurting her neck and she has a hard time sleeping. We did provide her with an N30 I mask which has a different head gear and may hopefully minimize her neck discomfort. She knows to get a chinstrap in order for it to be more effective for her. 09/01/2023 the patient is here for a pulmonary follow-up visit. She is feeling overall a lot better. She did get a 2nd opinion regarding her carcinoid and the decision was to hold off on her octreotide therapy since her studies and blood work were reassuring. She has been off the octreotide since the summer. Her constitutional symptoms have overall improved. Her respiratory status has also improved. She also still has her inhalers although she does not require them as often. Denies significant shortness of breath. The patient did have an evaluation with me over the fall. She was having some shortness of breath and tachycardia. Her D-dimer had been elevated and we did go ahead request a CTA. No evidence of any pulmonary emboli. the patient did have some dependent atelectasis and also a thyroid nodule. She had a thyroid nodule evaluated in the past and did have a biopsy also in the past. 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 Will make a referral this time. The patient is also having significant neck pain. She is being already evaluated by Neurosurgery she may need additional surgical interventions. For now though she is doing well from a respiratory status. She continues on the Provigil since his providing some improvement. She is not using her CPAP. The patient is still having some difficulties wearing the head gear because of the neck pain and also having hard time sleeping. Will continue the medicine this time although will consider decreasing in the near future. 05/03/2024 the patient is here for a pulmonary follow-up visit. Overall she is doing very good. She has been off the octreotide still. Still following levels closely no evidence of any active carcinoid. With the fact it has been she has been off the octreotide she is actually said significant weight loss which is reassuring. Her breathing is overall better. She has been able to come off some of the inhalers which is reassuring. Her sleep still difficult. She has not been able to use her CPAP regularly. She needs additional help with her sleep medications. I did recommend increasing the trazodone 150 and she can also use the gabapentin. Hopefully with that she gets more sleep. She is still relying on the modafinil. I am hopeful that if she is able to get more restful sleep that she will not need the modafinil or we can start decreasing the dose. [facility] Medical History (Updated 09/01/23 @ 13:38 by George Masters MD) Thyroid nodule CHF (congestive heart failure) Pulmonary hypertension Stridor Has daytime drowsiness Fatigue Sarcoidosis Carcinoid tumor Asthma LENA (obstructive sleep apnea) Social History (Updated 05/21/21 @ 13:31 by Noa Gerber Kashif) Patient Tobacco Use Status: Never used Tobacco Review of Systems Const Reports daytime sleepiness, Reports difficulty sleeping, Denies night sweats, Denies snoring and Reports weight loss ENT Denies change in voice, Denies lip swelling, Denies mouth pain, Reports nasal congestion, Reports nasal discharge, Reports neck pain and Denies tongue swelling Card Denies chest pain, Denies palpitations, Denies dyspnea and Reports dyspnea on ex ertion Resp Reports cough, Denies pain on inspiration, Denies pain with cough, Denies dyspnea, Reports dyspnea on exertion and Denies snoring GI Denies abdominal pain Musc Denies no additional complaints, Reports neck pain and Reports tingling Neuro Denies Neuro-related abnormal movements, Reports tingling and Reports paresthesias Psych Denies no additional complaints Endo Reports flushing and Denies palpitations Steve/Lymph Denies easy bleeding and Denies lymphadenopathy Aller/Immun Denies lip swelling and Denies tongue swelling Physical Exam Vital Signs: Last Vital Signs Pulse 82 05/03/24 13:14 BP 118/60 05/03/24 13:14 Pulse Ox 98 05/03/24 13:14 Oxygen Delivery Method Room Air 05/03/24 13:14 BMI result Body Mass Index 41.8 Const General: comfortable Nutritional Appearance: overweight Neck Neck: Yes normal visual inspection, Yes full ROM and Yes no lymphadenopathy Chest Chest palpation & inspection: normal inspection of the chest Resp Effort & Inspection: normal respiratory effort Auscultation: clear to auscultation bilaterally Cardio Rate: regular rate Rhythm: regular rhythm Heart sounds: S1 normal heart sound present and S2 normal heart sound present GI Palpation (GI): Soft to palpation and nontender Auscultation: normal bowel sounds Skin General skin exam: rashes and/or lesions noted Extrem General: No clubbing, No cyanosis and Yes edema Assessment & Plan Assessment & Plan (1) LENA (obstructive sleep apnea): Code(s): G47.33 - Obstructive sleep apnea (adult) (pediatric) Category: Medical (2) Asthma: Code(s): J45.909 - Unspecified asthma, uncomplicated Category: Medical Qualifiers: Asthma complication type: uncomplicated Asthma persistence: persistent Asthma severity: moderate Qualified Code(s): J45.40 - Moderate persistent asthma, uncomplicated (3) Carcinoid tumor: Comment: Now off Octrotide. Code(s): D3A.00 - Benign carcinoid tumor of unspecified site Category: Medical Qualifiers: Carcinoid tumor location: unspecified site Carcinoid tumor malignancy status: benign Qualified Code(s): D3A.00 - Benign carcinoid tumor of unspecified site (4) Has daytime drowsiness: Code(s): R40.0 - Somnolence Category: Social Hx (5) Pulmonary hypertension: Comment: mild RV dilation, but could not estimate PA pressures. Code(s): I27.20 - Pulmonary hypertension, unspecified Category: Medical (6) Thyroid nodule: Code(s): E04.1 - Nontoxic single thyroid nodule Category: Medical Plan continue Zyrtec increase Trazodone for sleep continue gabapentin Continue singular continue Dulera holding Spiriva continue Tessalon pearls short-acting beta agonist as needed continue APAP 10-18, trial N30i mask continue Provigil 200mg, hoping to decrease during the next visit Tessalon pearls as needed follow-up in 6-8 months Medications: Changed From trazodone 100 mg (2 x 50 mg) PO BEDTIME 30 days PRN 60 tabs 11RF sleep To trazodone 150 mg (3 x 50 mg) PO BEDTIME PRN 90 tabs 11RF sleep 30 days Coding Level of Care Code Est Pt Level 4 (60236) Complex EM visit Add On G2211 Diagnoses LENA (obstructive sleep apnea) G47.33 Moderate persistent asthma without complication J45.40 Asthma complication type: uncomplicated Asthma persistence: persistent Asthma severity: moderate Benign carcinoid tumor, unspecified site D3A.00 Carcinoid tumor location: unspecified site Carcinoid tumor malignancy status: benign Has daytime drowsiness R40.0 Pulmonary hypertension I27.20 Thyroid nodule E04.1 Time Spent (min) 17
[2024-05-03 13:14] VITALS: BP 118/60; PULSE 82; O2SAT 98; BMI 41.8
== END 2024-05-03 13:48 | disposition home or self-care (01) ==
PROVIDERS: PCP Internal Medicine; Visit Provider Hospitalist
DX: G47.33 Obstructive sleep apnea (adult) (pediatric) (principal); J45.40 Moderate persistent asthma, uncomplicated; D3A.00 Benign carcinoid tumor of unspecified site; R40.0 Somnolence; I27.20 Pulmonary hypertension, unspecified; E04.1 Nontoxic single thyroid nodule
CPT/HCPCS: 99214

== ENCOUNTER → 2024-05-03 13:08 | Outpatient (BNVA) | payer BC, MEDICARE, SELFPAY | PROVIDERS: PCP Internal Medicine; Visit Provider Hospitalist | DX: E04.1 Nontoxic single thyroid nodule (principal) ==

== ENCOUNTER 2025-01-09 09:20 | Outpatient (AMB) | payer BC, MEDICARE, SELFPAY ==
[2025-01-09 09:24] VITALS: BP 96/56; PULSE 84; O2SAT 97; BMI 37.4
--- NOTE | 2025-01-09 09:24 | MHC.OFFVIS ---
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 Ultimately had abnormal findings of lymphadenopathy a along with FDG uptake in [place] and was recommended to undergo endobronchial ultrasound bronchoscopy. The fine-needle aspirate was positive for non-necrotizing granulomas suspicious for sarcoidosis. She at that time she was having some cardiac symptoms with palpitations and shortness of breath and the recommendation of the time was to follow up with a evaluation for cardiac sarcoid. It is not clear if the patient did have a dedicated cardiac PET or a cardiac MRI. Her symptoms did improve and she was able to come off the prednisone safely. At this point the concern is that she is still having issues with her active carcinoid. She is going to go undergo additional therapies to see if she has to candidate for alternative therapies at this time. During the last visit she was started on Trelegy with good effect. Her respiratory status has significantly improved. She also started Singulair which also helped her allergies. We did try treating her nasal passages with budesonide rinsing, but, she could not tolerate the therapy after 4 days because of severe headaches. Otherwise patient is doing well will be following up in [place] for additional therapies and evaluation for her carcinoid. She did have a PET scan at [facility] she did I do not have the results. She was told that there is no evidence of any active disease anywhere. The patient will undergo endoscopy suite GI to further address the question. In the meantime the question of the sarcoid. We'll have to review the PET scan to see if there's any mediastinal activity like she had in the past. It is possible that this is dormant now. The patient also has some lightheadedness and nausea sensation. It appears that she has a little nystagmus on examination. ? 09/01/2023 the patient is here for a pulmonary follow-up visit. She is feeling overall a lot better. She did get a 2nd opinion regarding her carcinoid and the decision was to hold off on her octreotide therapy since her studies and blood work were reassuring. She has been off the octreotide since the summer. Her constitutional symptoms have overall improved. Her respiratory status has also improved. She also still has her inhalers although she does not require them as often. Denies significant shortness of breath. The patient did have an evaluation with me over the fall. She was having some shortness of breath and tachycardia. Her D-dimer had been elevated and we did go ahead request a CTA. No evidence of any pulmonary emboli. the patient did have some dependent atelectasis and also a thyroid nodule. She had a thyroid nodule evaluated in the past and did have a biopsy also in the past. 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 Will make a referral this time. The patient is also having significant neck pain. She is being already evaluated by Neurosurgery she may need additional surgical interventions. For now though she is doing well from a respiratory status. She continues on the Provigil since his providing some improvement. She is not using her CPAP. The patient is still having some difficulties wearing the head gear because of the neck pain and also having hard time sleeping. Will continue the medicine this time although will consider decreasing in the near future. 05/03/2024 the patient is here for a pulmonary follow-up visit. Overall she is doing very good. She has been off the octreotide still. Still following levels closely no evidence of any active carcinoid. With the fact it has been she has been off the octreotide she is actually said significant weight loss which is reassuring. Her breathing is overall better. She has been able to come off some of the inhalers which is reassuring. Her sleep still difficult. She has not been able to use her CPAP regularly. She needs additional help with her sleep medications. I did recommend increasing the trazodone 150 and she can also use the gabapentin. Hopefully with that she gets more sleep. She is still relying on the modafinil. I am hopeful that if she is able to get more restful sleep that she will not need the modafinil or we can start decreasing the dose. 01/09/2025 the patient is here for a pulmonary follow-up visit. She does complain of increasing shortness of breath. [id number] severity. Seems to be worse when she is active and also when she lays flat. She has also noticed increased weight gain. She has been on her Lasix although she does not PLM. She was also on Aldactone. She is wondering if there is a stronger respiratory inhalers since it is not helping. Right now she is medically optimized on her inhalers. Her inspiratory exam is reassuring. There was a question of pulmonary hypertension on her echo. I do not have the report she likely had an feel. The patient unfortunately has not been tolerating CPAP. The patient does have a history of obstructive sleep apnea. I we explained the importance of using the CPAP specially because of the risk of hypoxic vaso constriction in worsening pulmonary hypertension from the apneic episodes. And now with significant lower extremity edema the patient may have a component of right-sided failure. She will increase the diuretics for the next 2-3 days to see if we can have a better volume status. Will go ahead and request echocardiogram. In the meantime will request another home sleep study in order to get a requalify for CPAP start treating her. [facility] Medical History (Updated 09/01/23 @ 13:38 by George Masters MD) Thyroid nodule CHF (congestive heart failure) Pulmonary hypertension Stridor Has daytime drowsiness Fatigue Sarcoidosis Carcinoid tumor Asthma LENA (obstructive sleep apnea) Social History Patient Tobacco Use Status: Never used Tobacco Review of Systems Const Denies chills, Denies fatigue and Denies fever(s) Eyes Reports no additional complaints ENT Denies dizziness, Denies lip swelling and Denies tongue swelling Card Denies chest pain, Reports leg edema, Denies lightheadedness, Denies palpitations, Reports dyspnea, Reports dyspnea on exertion, Reports orthopnea and Denies other Resp Denies cough, Reports dyspnea and Reports dyspnea on exertion GI Denies hematochezia and Denies change in stool character Musc Denies abnormal gait, Denies muscle weakness, Denies numbness, Denies radiating pain into limb and Denies tingling Neuro Denies abnormal gait, Denies dizziness, Denies numbness and Denies tingling Psych Denies no additional complaints Endo Denies fatigue and Denies palpitations Steve/Lymph Denies easy bleeding and Denies lymphadenopathy Aller/Immun Denies lip swelling and Denies tongue swelling Physical Exam Vital Signs: Last Vital Signs Pulse 84 01/09/25 09:24 BP 96/56 L 01/09/25 09:24 Pulse Ox 97 01/09/25 09:24 Oxygen Delivery Method Room Air 01/09/25 09:24 BMI result Body Mass Index 37.4 Const General: comfortable Nutritional Appearance: overweight Neck Neck: Yes normal visual inspection, Yes full ROM and Yes no lymphadenopathy Chest Chest palpation & inspection: normal inspection of the chest Resp Effort & Inspection: normal respiratory effort Auscultation: diminished lung sounds Cardio Rate: regular rate Rhythm: regular rhythm Heart sounds: S1 normal heart sound present and S2 normal heart sound present GI Palpation (GI): Soft to palpation and nontender Auscultation: normal bowel sounds Skin General skin exam: rashes and/or lesions noted Extrem General: No clubbing, No cyanosis and Yes edema Assessment & Plan Assessment & Plan (1) LENA (obstructive sleep apnea): Code(s): G47.33 - Obstructive sleep apnea (adult) (pediatric) Category: Medical (2) Asthma: Code(s): J45.909 - Unspecified asthma, uncomplicated Category: Medical Qualifiers: Asthma complication type: uncomplicated Asthma persistence: persistent Asthma severity: moderate Qualified Code(s): J45.40 - Moderate persistent asthma, uncomplicated (3) Carcinoid tumor: Comment: Now off Octrotide. Code(s): D3A.00 - Benign carcinoid tumor of unspecified site Category: Medical Qualifiers: Carcinoid tumor location: unspecified site Carcinoid tumor malignancy status: benign Qualified Code(s): D3A.00 - Benign carcinoid tumor of unspecified site (4) Has daytime drowsiness: Code(s): R40.0 - Somnolence Category: Social Hx (5) Pulmonary hypertension: Comment: mild RV dilation, but could not estimate PA pressures. Code(s): I27.20 - Pulmonary hypertension, unspecified Category: Medical (6) Thyroid nodule: Code(s): E04.1 - Nontoxic single thyroid nodule Category: Medical Plan continue Zyrtec Trazodone for sleep continue gabapentin Continue singular continue Dulera continue Tessalon pearls short-acting beta agonist as needed Needs to re-evaluate for LENA, home PSG continue Provigil 200mg, hoping to decrease during the next visit Increase Lasix x 2-3 days in improve fluid status Need a copy of her last ECHO Tessalon pearls as needed follow-up in 6-8 months Orders: Orders RT home sleep study Today G47.33 - Obstructive sleep apnea (adult) (pediatric) Coding Level of Care Code Est Pt Level 4 (73080) Complex EM visit Add On G2211 Diagnoses LENA (obstructive sleep apnea) G47.33 Moderate persistent asthma without complication J45.40 Asthma complication type: uncomplicated Asthma persistence: persistent Asthma severity: moderate Benign carcinoid tumor, unspecified site D3A.00 Carcinoid tumor location: unspecified site Carcinoid tumor malignancy status: benign Has daytime drowsiness R40.0 Pulmonary hypertension I27.20 Thyroid nodule E04.1 Time Spent (min) 18
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
--- OUTSIDE RECORDS SUMMARY | 2025-01-09 09:51 | XMS_ITS | Clinical Summary ---
Author Organization [facility] Address [address] [place] [address] Care Team Providers Care Animal Laboratory Helper Name Role Phone Daryl Strong Primary Care Provider [phone] Allergies Active Allergy Reactions Criticality Noted Date Comments Cephalexin Rash,Dermatitis Low 11/27/2012 Citalopram Unknown Low 09/03/2016 Not allergies to celexa,wrong info Not allergies to celexa,wrong info Not allergies to celexa,wrong info Povidone-Iodine Rash Low 09/03/2016 Other reaction(s): Rash/Dermatitis Awiigiq-Mmg-Oou Reductase Inhibitors Other (see comments),Muscle Spasm,Hives 01/05/2017 [...] for now, which were prescribed by OSH director of medical services. Start PCP prophy with atovaquone. She is [...] octreotide (sandostatin) which she is tolerating well Family History Medical History Relation Name Comments Cancer Father Heart disease Father Heart failure Mother Stroke Mother Relation Name Status Comments Father Mother Social History Tobacco Use Types Packs/Day Years [...] 7: 42 PM EDT Plan of Treatment Health Maintenance Due Date Last Done Comments Cologuard 1955 Colon Cancer Screening 1955 Colonoscopy 1955 FOBT / Fit Test 1955 Hepatitis C Screening 1955 Sigmoidoscopy 1955 Pneumococcal Vaccine: 50+ Years (1 of 2 - PCV) 02/15/1976 DTaP,Tdap,and Td Vaccines (1 - Tdap) 1979 Mammogram 1997 Osteoporosis Screening 2007 COVID-19 Vaccine ( season) 2024 08/18/2023, 07/25/2022, 07/25/2022, Additional history exists Alcohol/Substance Use Screening 08/29/2024 Depression Screening and Follow-Up 08/29/2024 Health Care Proxy Review 08/29/2024 Social Drivers of Health Annual Screening 08/29/2024 Basic Metabolic Panel 03/15/2025 03/15/2024 , 06/23/2023, 01/31/2023 Influenza Vaccine (Season Ended) 2025 06/24/2023, 06/15/2022, 06/25/2021, Additional history exists Zoster Vaccines Completed 06/27/2020, 06/22/2019 RSV Vaccine (60+ years old and patients) Completed 09/12/2023 Hepatitis B Vaccines Aged Out No long er eligible based on patient's age to complete [place] [id number] [facility] PPO/EPO MEDICARE Care Teams Animal Laboratory Helper Relationship Specialty Start Date End Date Daryl Strong [address] [place] [address] PCP - General Internal Medicine 12/20/23
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
--- OUTSIDE RECORDS SUMMARY | 2025-01-09 09:52 | XMS_ITS | Data Portability ---
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 Orellana pre sents with bilateral knee pains, right greater than left, due to degenerative joint disease. I had a lengthy discussion with the patient regarding the treatment options. She wishes to hold off on surgery for as long as possible. I agree with this plan. Thus, after verbal consent was given I prepped the right knee with alcohol. I then in active 5 cc of 1% plain lidocaine followed by 40 mg of kenalog. Patient tolerated the injection well. At this point her left knee pain is tolerable to her. She will continue with her home exercise program. She will follow-up with me on an as-needed basis should her symptoms not plateau at an acceptable level over the next few months. audrey Not available 11/30/2022 12:18:13 07/31/2024 07/31/2024 69-year-old fema le with right knee pain. History, examination and x-rays are consistent with advanced osteoarthritis with [id number] articulation. After lengthy discussion regarding treatment options she wishes to proceed with viscosupplementation injection. She will give some thought to future planning for total joint arthroplasty. Follow-up pending insurance authorization for gel injection. This patient was seen and evaluated by Praneeth Braun MS, PA-C in indirect conjunction with documenting/supervisin g provider Jacob Salazar MD. He agrees with history, physical examination, tests/diagnostic imaging, and treatment plan. This document was generated using voice recognition software. As a result, there may be unintended spelling, grammatical and/or textual errors. Not available 07/31/2024 09:46:53 Plan of Treatment Reminders Order Date Submit Date Provider Last Modified By Organization Details Last Modified Time Details Appointments None recorded. Lab None recorded. Referral None recorded. Procedures intra-artic ular injection, knee, viscosupple ment (PROC) - Please check insurance for [employer] Authorizati on, insurance preferred med.Choose One: 3 series or 1 seriespr efers 1Knee Laterality: Right 2023 024 [email or web address] Not available 5 09:37:21 Surgeries None recorded. Imaging XR, knee, 4 or more view 2023 024 [email or web address] [facility], [address], [place], [address], 4 10:23:36 XR, knee, 1 or 2 view 2022 023 [email or web address] [facility], [address], [address], [place], [address], 3 12:22:23 XR, knee, 1 or 2 view 2022 023 [email or web address] [facility], [address], [address], [place], [address], 3 12:22:23 Medication Orders None recorded. Patient TargetsNo targets recorded. Patient Instructions Encounter Date Encounter Id Patient Instructions Last Modified By Organization Details Last Modified Time 07/31/2024 [id number] {{2 3 4 5 6 7* 8 9}} view X-ray study obtained during today's office encounter show evidence of {{mild moderate s evere*}} {{right* left matt ateral}} {{hip knee*}} osteoarthritis. There is joint space narrowing, subchondral sclerosis and marginal osteophytosis. Kellgren-Romel grade {{0 1 2 3 4*}}. No evidence of acute fracture or osteolytic findings. Not available 07/31/2024 09:45:48 Reason for Referral None Reported. Problems Name Problem SNOMED Code Status Onset Date Resolution Date Notes Provider Name and Address Organization Details Recorded Time Osteoarthri tis of right knee joint [id number] 00 Active 2022 PRANEETH BRAUN PA-C [address], [place], [address], [place] [facility] 09:46:07 Problem Notes None recorded. Procedures Surgical History Date Name Laterality Status Provider Name and Address Organization Details Recorded Time 12/01/19 23 Knee Joint/Bursa Asp & Inj completed Williams Weathers MD [address] [place] [address],[place] [address], [place], [address], [place] [facility] 11/30/2022 12:17:18 Appendectomy completed Maria D Rodriguez [place] [facility] 11/30/2022 11:15:01 Cholecystectomy completed Maria D Rodriguez [place] [facility] 11/30/2022 11:15:09 excision of lumbar intervertebral disc completed Maria D Rodriguez [place] [facility] 11/30/2022 11:15:24 excision of cervical intervertebral disc completed Maria D Rodriguez [place] [facility] 11/30/2022 11:15:36 Imaging Results None recorded. Procedure Notes None recorded. Medical Equipment None Reported. Allergies Allergen ID Allergen Name Allergen Category Reaction Reaction Severity Criticality Documentation Date Start Date Code Code System Note Provider Name and Address Organization Details Recorded Time 1492 Keflex medicatio n Not available Not available Not available 11/30/2022 [id number] RxNorm Maria D Rodriguez null, [place] [facility] 11:11:57 1493 Product containin g 3-hydroxy -3-methyl glutaryl- coenzyme A reductase inhibitor (product) medicatio n Not available Not available Not available 11/30/2022 33542 009 SNOMED Maria D Rodriguez null, [place] [facility] 3 11:12:12 Medications Name Sig Start Date Stop Date Status Note LastModified by Organization Details LastModified Time carisoprodo l 350 mg tablet TAKE 1 TABLET BY MOUTH THREE TIMES A DAY NEEDED active Not Available Not Available No t Available pramipexole 1 mg tablet TAKE 1 TABLET BY MOUTH EVERY DAY AT BEDTIME FOR 90 DAYS active Not Available Not Available No t Available furosemide 40 mg tablet TAKE 1 TABLET BY MOUTH EVERY DAY active Not Available Not Available No t Available gabapentin 600 mg tablet TAKE 2 TABLETS EVERY MORNING , 1 TABLET IN THE AFTERNOON IF NEEDED, TAKE 2 TABLETS AT BEDTIME active Not Available Not Available No t Available doxycycline hyclate 100 mg capsule TAKE 1 CAPSULE BY MOUTH TWICE A DAY FOR 10 DAYS active Not Available Not Available No t Available trazodone 50 mg tablet TAKE 2 TABLETS BY MOUTH EVERY DAY AT BEDTIME NEEDED FOR SLEEP FOR 30 DAYS active Not Available Not Available No t Available fluconazole 150 mg tablet TAKE 1 TABLET BY MOUTH ONCE FOR 1 DAY active Not Available Not Available No t Available benzonatate 200 mg capsule TAKE 1 CAPSULE BY MOUTH TWICE A DAY NEEDED FOR COUGH active Not Available Not Available No t Available metoprolol succinate ER 50 mg tablet,exte nded release 24 hr TAKE 1 TABLET BY MOUTH TWICE A DAY active Not Available Not Available No t Available methylpheni date 10 mg tablet TAKE 1-2 TABLETS (10-20 MG TOTAL) BY MOUTH 2 TIMES A DAY. active Not Available Not Available No t Available lisinopril 20 mg tablet TAKE 1 TABLET BY MOUTH EVERY DAY active Not Available Not Available No t Available prednisone 20 mg tablet TAKE 2 TABLETS BY MOUTH EVERY DAY FOR 5 DAYS 07/31 completed Not Available Not Available Not Available metoprolol succinate ER 100 mg tablet,exte nded release 24 hr TAKE 1 TABLET BY MOUTH EVERY DAY 07/31 completed Not Available Not Available Not Available ciprofloxac in 250 mg tablet TAKE 1 TABLET BY MOUTH EVERY 12 HOURS FOR 5 DAYS 07/31 completed Not Available Not Available Not Available doxycycline monohydrate 100 mg tablet TAKE 1 TABLET BY MOUTH TWICE A DAY FOR 10 DAYS 07/31 completed Not Available Not Available Not Available spironolact one 25 mg tablet TAKE 1 TABLET (25 MG TOTAL) BY MOUTH DAILY. active Not Available Not Available No t Available oxycodone-a cetaminophe n 5 mg-325 mg tablet TAKE 1 TABLET BY MOUTH EVERY 8 HOURS NEEDED active Not Available Not Available No t Available methenamine hippurate 1 gram tablet TAKE 1 TABLET BY MOUTH TWICE A DAY . TAKE WITH OJ/CRANBE RRY JUICE STOP IF ON ANY OTHER ANTIBIOTI CS active Not Available Not Available No t Available lorazepam 0.5 mg tablet TAKE 1 TABLET BY MOUTH AT BEDTIME NEEDED 07/31 completed Not Available Not Available Not Available lidocaine 5 % topical patch APPLY 1 PATCH TO SKIN DAILY FOR 12 HOURS. REMOVE FOR 12 HOURS active Not Available Not Available No t Available promethazin e 25 mg tablet TAKE 1 TABLET BY MOUTH EVERY 6 HOURS NEEDED FOR NAUSEA active Not Available Not Available No t Available pramipexole 0.25 mg tablet TAKE 1-2 TABLETS ONCE A DAY, AT BEDTIME 90 active Not Available Not Available No t Available montelukast 10 mg tablet TAKE 1 TABLET BY MOUTH EVERY NIGHT AT BEDTIME active Not Available Not Available No t Available dronabinol 10 mg capsule TAKE 2 CAPSULES (20 MG TOTAL) BY MOUTH 2 (TWO) TIMES A DAY BEFORE MEALS. 07/31 completed Not Available Not Available Not Available furosemide 20 mg tablet TAKE 1 TABLET BY MOUTH EVERY DAY EVERY AFTERNOON 07/31 completed Not Available Not Available Not Available azelastine 137 mcg (0.1 %) nasal spray USE 2 SPRAYS IN EACH NOSTRIL TWICE A DAY 30 07/31 completed Not Available Not Available Not Available epinephrine 0.3 mg/0.3 mL injection, auto-inject or INJECT INTRAMUSC ULARLY EVERY 10 MINUTES NEEDED FOR ANAPHYLAX IS FOR 30 DAYS FOR 2 DOSES active Not Available Not Available No t Available zolpidem 10 mg tablet TAKE 1 TABLET BY MOUTH AT BEDTIME NEEDED FOR SLEEP 07/31 completed Not Available Not Available Not Available methylpredn isolone 4 mg tablets in a dose pack TAKE 6 TABLETS ON DAY 1 DIRECTED ON PACKAGE AND DECREASE BY 1 TAB EACH DAY FOR A TOTAL OF 6 DAYS active Not Available Not Available No t Available albuterol sulfate HFA 90 mcg/actuati on aerosol inhaler INHALE 2 PUFFS NEEDED EVERY 6 HRS NEEDED FOR WHEEZING active Not Available Not Available No t Available phenobarb-h yoscyamn-at ropine-scop 16.2 mg-0.1037 mg-0.0194 mg tablet TAKE 1 TABLET BY MOUTH EVERY 6 HOURS NEEDED 07/31 completed Not Available Not Available Not Available lisinopril 40 mg tablet TAKE 1 TABLET BY MOUTH EVERY DAY active Not Available Not Available No t Available piroxicam 20 mg capsule TAKE 1 CAPSULE BY MOUTH ONCE A DAY AFTER MEALS active Not Available Not Available No t Available amoxicillin 875 mg-derek m clavulanate 125 mg tablet TAKE 1 TABLET BY MOUTH EVERY 12 HOURS FOR 10 DAYS 07/31 completed Not Available Not Available Not Available modafinil 100 mg tablet TAKE 1 TABLET BY MOUTH DAILY active Not Available Not Available No t Available rosuvastati n 20 mg tablet TAKE 1 TABLET BY MOUTH EVERYDAY AT BEDTIME active Not Available Not Available No t Available nitrofurant oin monohydrate /macrocryst als 100 mg capsule TAKE 1 CAPSULE BY MOUTH TWICE A DAY active Not Available Not Available No t Available Cymbalta 60 mg capsule,del ayed release TAKE 2 CAPSULES (120 MG) BY ORAL ROUTE ONCE DAILY FOR 90 DAYS 07/31 completed Not Available Not Available Not Available Soma active Not Available Not Availa ble Not Available armodafinil 150 mg tablet TAKE 1 TABLET BY MOUTH EVERY MORNING active Not Available Not Available No t Available Linzess 290 mcg capsule TAKE 1 CAPSULE BY MOUTH EVERY DAY active Not Available Not Available No t Available Spiriva Respimat 2.5 mcg/actuati on solution for inhalation INHALE 2 PUFFS BY MOUTH EVERY DAY active Not Available Not Available No t Available Plenvu 140 gram-9 gram-5.2 gram powder packs TAKE 3 PACKETS BY MOUTH DIRECTED FOLLOW INSTRUCTI ONS PROVIDED BY THE PHYSICIAN FOR COLONOSCO PY active Not Available Not Available No t Available Paxlovid 300 mg (150 mg x 2)-100 mg tablets in a dose pack TAKE 3 TABLETS BY MOUTH TWICE A DAY 07/31 completed Not Available Not Available Not Available Mounjaro 7.5 mg/0.5 mL subcutaneou s pen injector TAKE 7.5 MG WEEKLY SUBCUTANE OUS 30 DAYS active Not Available Not Available No t Available Mounjaro 5 mg/0.5 mL subcutaneou s pen injector INJECT THE CONTENTS OF 1 PEN SUBCUTANE OUSLY ONCE WEEKLY 28 active Not Available Not Available No t Available Mounjaro 10 mg/0.5 mL subcutaneou s pen injector INJECT 0.5ML DOSE UNDER SKIN WEEKLY active Not Available Not Available No t Available Mounjaro 2.5 mg/0.5 mL subcutaneou s pen injector INJECT 2.5 MG UNDER THE SKIN WEEKLY 28 active Not Available Not Available No t Available Vitals Date Recorded Body height Body weight Body mass index (BMI) Provider Name and Address Organization Details Last Updated DateTime 07/31/2024 167.64 cm 353843.05 g 41.2 kg/m2 Kalyani Rizo MD - [facility] 07/31/2024 09:32:25 Date Recorded Body height Body mass index (BMI) Body weight Provider Name and Address Organization Details Last Updated DateTime 11/30/2022 167.64 cm 45.8 kg/m2 564168.23 g Maria D Rodriguez MD - [facility] 11/30/2022 11:12:28 Social History None recorded. Functional Status None recorded. Mental Status None recorded. Family History Relationship Description Onset Age of this Age Resolved Age Notes LastModified by Organization Details LastModified Time Father Blood coagulation disorder [email or web address] Not available 2022 11:13:43 Father Family history of malignant neoplasm [email or web address] Not available 2022 11:13:58 Father Heart disease [email or web address] Not available 2022 11:14:31 Father Hypertensive disorder [email or web address] Not available 2022 11:14:51 Sister Blood coagulation disorder [email or web address] Not available 2022 11:13:43 Sister Family history of malignant neoplasm [email or web address] Not available 2022 11:13:58 Sister Hypertensive disorder [email or web address] Not available 2022 11:14:51 Mother Diabetes mellitus [email or web address] Not available 2022 11:14:08 Mother Heart disease [email or web address] Not available 2022 11:14:32 Mother Hypertensive disorder [email or web address] Not available 2022 11:14:51 Brother Heart disease [email or web address] Not available 2022 11:14:32 Brother Hypertensive disorder [email or web address] Not available 2022 11:14:51 Medical History Condition Response Diabetes Y Bleeding Disorder Y Cancer Y Hypertension Y COPD Y Gynecological HistoryNo gynecological history recorded. Obstetrics History GPAL:G 0 P 0 0 0 0 Past Encounters Encounter ID Performer Location Encounter Start Date Encounter Closed Date Diagnosis/Indication Diagnosis SNOMED-CT Code Diagnosis ICD10 Code Diagnosis Note [id number] MD GODWIN Persaud [facility] [address] [facility] [address] [place] [address] 11/30/2022 10:46:26 11/30/2022 11:38:21 Pain of left knee joint [id number] 06349 M25.562 Pain of ri ght knee joint 7987118100 09162 M25.561 Osteoarthr itis of right knee joint 2747039354 39590 M17.11 [id number] MARIA DE JESUS ALAN [place] [address] [facility] [address] [place] [address] 07/31/2024 09:07:34 07/31/2024 09:49:01 Pain of right knee region 5509315043 84657 M25.561 Osteoarthr itis of right knee joint 7973977938 55975 M17.11 Health Concerns Section Related Observation LastModified by Organization Detai ls LastModified Time None Recorded Concern Status LastModified by Organization Details LastModified Time None Recorded Advance Directives Directive None Recorded Payers Encounter Date Sequence Insurance Name Policy Number Policy Hawkins Covered Member ID Hawkins Member ID Guarantor Name 11/30/2022 1 [place]: [facility] (O) [id number] Kyle Infante [id number] Sameera Infante 11/30/2022 2 [place] [facility] Sameera Infante [id number] Sameera Infante 07/31/2024 2 [place]IC[place]: [facility] Sameera Infante [id number] Sameera Infante 07/31/2024 1 [place] KAYLENE SOUZA (PPO) [id number] Kyle Infante [id number] Sameera Infante Notes Date Note Type Note Provider Name and Address Organization Details Recorded Time 3 text/html The patient presents with complaints of progressively worsening bilateral knee pains, right greater than left. She describes her right knee pain as sharp in nature. Her pain has gotten worse over the last few years in spite of continued nonoperative treatments. She has taken Tylenol and anti-inflammatory medicines which gave her minimal relief. She has also done physical therapy exercises which aggravated her pain. She has had cortisone injections in the past which gave her temporary relief. She wishes to hold off on surgery for as long as possible. Williams Weathers MD [address] [place] [address], [address], [place] [facility] 11/30/2022 12:19:08 4 text/html 69-year-old female presents with chief complaint of right knee pain. She has had knee pain for many years. As matter fact, she was told a decade ago that she would likely require total joint arthroplasty. She underwent a meniscal repair greater than 10 years ago. She reports that she has used a number of prescription edmq-cxs-iurubja medicines with limited relief of her pain. She reports having had cortisone injections in the past. She states that they initially helped her but the more recent injections have been ineffective. She engages me in conversation about the role of viscosupplementation injections. 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 PRANEETH BRAUN PA-C [address], [place], [address], [place] [facility] 07/31/2024 09:47:13 OBGyn Episode No OBEpisode recorded.
--- OUTSIDE RECORDS SUMMARY | 2025-01-09 09:52 | XMS_ITS | Clinical Summary ---
Author Organization [facility] Address [address] [place] [address] Care Team Providers Care Hopper Attendant Name Role Phone Daryl Strong MD Primary Care Provider [phone] Allergies Active Allergy Reactions Criticality Noted Date Comments Benzoin 05/17/2022 Other reaction(s): burnt skin caused bubbling Other reaction(s): burnt skin caused bubbling Povidone Iodine Rash Low 09/03/2016 Citalopram Low 09/03/2016 Not allergies to celexa,wrong info Doxycycline 07/18/2023 Cephalexin Rash Low 09/03/2016 Atorvastatin Other (See Comments) 11/11/2017 MUSCLE CRAMPS Statins 11/29/2017 Elev CPK, myalgias, simvastatin, lipitor, pravachol Sulfa Antibiotics Other (See Comments) 02/10/20 10 Elev CPK, myalgias, simvastatin, lipitor, pravachol Elev CPK, myalgias, simvastatin, lipitor, pravachol Tape 07/18/2023 Other reaction(s): skin irritation Medications Medication Sig Dispensed Refills Start Date End Date Status gabapentin (NEURONTIN) 600 MG tablet 2 tablets (1,200 mg total) 3 (three) times a day. 0 09/16/2017 Active carisoprodol (SOMA) 350 MG tablet 0 10/03/2017 Active rosuvastatin (CRESTOR) tablet 20 mg 0 10/18/2017 Active Cholecalciferol (VITAMIN D) 2000 units tablet Take 1,000 Units by mouth daily. 0 Active CRANBERRY EXTRACT PO Take by mouth daily. 0 Active [place]-3 Fatty Acids (FISH OIL) 1000 MG CAPS Take by mouth daily. 0 Active Biotin 1000 MCG tablet Take 1,000 mcg by mouth daily. 0 Active omeprazole (PRILOSEC) 20 MG capsule Take 1 capsule (20 mg total) by mouth daily. 0 Active albuterol (PROVENTIL) (2.5 MG/3ML) 0.083% nebulizer solution albuterol sulfate 2.5 mg/3 mL (0.083 %) solution for nebulization 0 Active aspirin 81 MG chewable tablet Chew 1 tablet (81 mg total) by mouth. 0 Active cetirizine (ZyrTEC) 5 MG tablet Take 1 tablet (5 mg total) by mouth. 0 04/16/2019 Active Coenzyme Q10 (CO Q 10) 10 MG CAPS Take by mouth. 0 Active Fluticasone Furoate-Vilanterol 200-25 MCG/INH AEPB Inhale 1 puff into the lungs. 0 Active lidocaine (LIDODERM) 5 % lidocaine 5 % topical patch 0 Active montelukast (SINGULAIR) 10 MG tablet 0 11/22/2019 Active nystatin (MYCOSTATIN) powder Apply topically. 0 03/05/2019 Active oxyCODONE-acetamin ophen (PERCOCET) 5-325 MG per tablet Take 1 tablet by mouth every 8 (eight) hours as needed. 0 11/06/2019 Active promethazine (PHENERGAN) tablet 25 mg Take 1 tablet (25 mg total) by mouth every 6 (six) hours as needed. for nausea 0 11/07/2019 Active fluticasone (FLONASE) 50 MCG/ACT nasal spray Flonase Allergy Relief 0 Active lisinopril (PRINIVIL,ZESTRIL) tablet 40 mg Take 1 tablet (40 mg total) by mouth daily. 0 07/01/2020 Active Armodafinil 150 MG tablet Take 1 tablet (150 mg total) by mouth daily. 0 Active Elastic Bandages & Supports (Jobst Anti-Em Knee Length Med) MISC 1 Units by Does not apply route daily. 2 each 0 03/02/2023 Active spironolactone (ALDACTONE) tablet 25 mgIndications:Esse ntial hypertension,Bilat eral leg edema Take 1 tablet (25 mg total) by mouth daily. 90 tablet 3 09/20/2023 Active furosemide (LASIX) 40 MG tablet TAKE 1 TABLET BY MOUTH EVERY DAY 90 tablet 3 12/26/2023 Active furosemide (LASIX) 20 MG tablet TAKE 1 TABLET BY MOUTH EVERY AFTERNOON 90 tablet 1 04/16/2024 Active Mounjaro 7.5 MG/0.5ML TAKE 7.5 MG WEEKLY SUBCUTANEOUS 30 DAYS 0 03/16/2024 Active metoprolol succinate (TOPROL-XL) 24 hr tablet 50 mg Take 1 tablet (50 mg total) by mouth 2 (two) times a day. 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 Chest pain 01/03/2018 Pure hypercholesterolemia 01/03/2018 Prediabetes 01/03/2018 Family History Medical History Relation Name Comments Colon cancer Father Heart disease Mother Cancer Sister 1 Heart disease Sister 3 Relation Name Status Comments Brother Father Mother Sister 1 Alive Sister 2 Alive Sister 3 Social History Tobacco Use Types Packs/Day Years Used Date Smoking Tobacco: Never Passive Smoke Exposure: Past Smokeless Tobacco: Never Tobacco Cessation:Counseling Given: Not Answered Alcohol Use Standard Drinks/Week Comments Yes 0 (1 standard drink = 0.6 oz pur e alcohol) rare Sex and Gender Information Value Date Recorded Sex Assigned at Female 11/04/2022 2:28 PM EST Gender Identity Not on file Sexual Orientation Not on file Job Start Date Occupation Industry Not on file Not on file Not on file Last Filed Vital Signs Vital Sign Reading Time Taken Comments Blood Pressure 126/76 04/16/2024 2:32 PM EDT Pulse 82 04/16/2024 2:32 PM EDT Temperature 36.1 ??C (97 ??F) 12/03/2022 12:08 PM EDT Respiratory Rate 16 11/13/2017 8:00 AM EDT Oxygen Saturation 99% 04/16/2024 2:32 PM EDT Inhaled Oxygen Concentration - - Weight 122.9 kg (271 lb) 04/16/2024 2:32 PM EDT Height 167.6 cm (5' 6 ) 04/16/2024 2:32 PM EDT Body Mass Index 43.74 04/16/2024 2:32 PM EDT Plan of Treatment Health Maintenance Due Date Last Done Comments Hepatitis C Screening 1957 Depression Screening 1969 Preventative Health Evaluation 1975 Colon Cancer Screening (Colonoscopy) 2002 Breast Cancer Screening (Mammogram) 2007 RSV Adult > 60+ Yrs or (1 - Risk 60-74 years 1-dose series) 2017 BMI Counseling 01/20/2020 01/19/2019, 10/06/2018 Pneumococcal Vaccine (2 of 2 - PCV) 11/14/2020 11/15/2019 COVID-19 Vaccine (3 - Pfizer risk series) 12/03/2020 11/05/2020, 10/16/2020 Fall Risk Assessment 2022 Osteoporosis Screening (DEXA Scan) 2022 Influenza Vaccine (#1) 2024 2, 06/25/2021, 06/05/2018, Additional history exists DTap / Tdap / Td (2 - Td or Tdap) 09/19/2024 09/19/2014 Shingrix-Zoster Vaccine Completed 06/27/2020, 06/22 Hepatitis B Vaccines Aged Out No long er eligible based on patient's age to complete this topic RSV Ped < 20 months Aged Out No longe r eligible based on patient's age to complete this topic Medical Devices Implanted Type Area Instrument Technician Device Identifier Shelf Expiration Date Model / Serial / Lot Sponge Surgiflo 8ml Hemostatic Matrix Absorbable Latex Free - [id number] - [id number] Implanted:Qty: 1 on 11/11/2017 by David Early MD at [facility] Hemostatic Agent Anterior: Spine Cervical [employer] 03/28/2019 [id number] / / [id number] Xpand Implanted:Qty: 1 on 11/11/2017 by David Early MD at [facility] [place] and Med Anterior: Spine Cervical [employer] 316.131 / / Plate Prtc 30mm Pinky Xtend - [id number] - [id number] Implanted:Qty: 1 on 11/11/2017 by David Early MD at [facility] [place] and Med Anterior: Spine Cervical [employer] 161.230 / / Screw Bone 4.2mm Selftap - [id number] - [id number] Implanted:Qty: 2 on 11/11/2017 by David Early MD at [facility] [place] and Med Anterior: Spine Cervical [employer] 161.316 / / Screw Bone 16mm [facility] - [id number] - [id number] Implanted:Qty: 2 on 11/11/2017 by David Early MD at [facility] [place] and Med Anterior: Spine Cervical [employer] 161.716 / / Explanted Type Area Instrument Technician Device Identifier Shelf Expiration Date Model / Serial / Lot Cervical Anterior Cages Explanted:Qty: 2 on 11/11/2017 by David Early MD at [facility] [place] and Med Anterior: Spine Cervical Advance Directives For more information, please contact: [phone] Latest Code Status on File Code Status Date Activated Date Inactivated Comments Full Code 11/11/2017 8:24 PM 11/13/2017 8:18 PM This code status was ascertained in the following way: per living will or healthcare instructions . Care Teams Hopper Attendant Relationship Specialty Start Date End Date Daryl Strong MD [address] [place] [address] PCP - General Internal Medicine 09/03/16
== END 2025-01-09 09:57 | disposition home or self-care (01) ==
LOC: HO.HPS 09:21
PROVIDERS: PCP Internal Medicine; Visit Provider Hospitalist
DX: G47.33 Obstructive sleep apnea (adult) (pediatric) (principal); J45.40 Moderate persistent asthma, uncomplicated; D3A.00 Benign carcinoid tumor of unspecified site; R40.0 Somnolence; I27.20 Pulmonary hypertension, unspecified; E04.1 Nontoxic single thyroid nodule
CPT/HCPCS: 99214

== ENCOUNTER → 2025-03-14 08:58 | Outpatient (REF) | payer BC, MEDICARE, SELFPAY ==
--- OUTSIDE RECORDS SUMMARY | 2025-03-14 09:19 | XMS_ITS | Referral Summary ---
Author Organization [facility] Address [address] [place] [address] Care Team Providers Care Appeals Representative Name Role Phone Daryl Strong Primary Care Provider [phone] Allergies Active Allergy Reactions Criticality Noted Date Comments Cephalexin Rash,Dermatitis Low 11/27/2012 Citalopram Unknown Low 09/03/2016 Not allergies to celexa,wrong info Not allergies to celexa,wrong info Not allergies to celexa,wrong info Povidone-Iodine Rash Low 09/03/2016 Other reaction(s): Rash/Dermatitis Ehwhmke-Tej-Ilo Reductase Inhibitors Other (see comments),Muscle Spasm,Hives 01/05/2017 [...] for now, which were prescribed by OSH travel cota. Start PCP prophy with [facility]. She is [...] Plan of Treatment Not on file Insurance [facility] PPO/EPO MEDICARE Care Teams Appeals Representative Relationship Specialty Start Date End Date Daryl Strong [address] [place] [address] PCP - General Internal Medicine 12/20/23
--- OUTSIDE RECORDS SUMMARY | 2025-03-14 09:20 | XMS_ITS | Clinical Summary ---
Author Organization [facility] Address [address] [place] [address] Care Team Providers Care Patient Admitting Representative Name Role Phone Daryl Strong MD Primary Care Provider [phone] Allergies Active Allergy Reactions Criticality Noted Date [...] Description 12/27/2024 9:55 AM EDT Ancillary Procedure [facility] Radiology [address] [place] [address] Provider, File Room 12/27/2024 9:30 AM EDT Office Visit [facility] Neurosurgery [place] [address] [facility] [address] [place] [address] Daryl Strong MD Qureshi, Nazer, MD Neck pain (Primary Dx); History of cervical spinal surgery 12/27/2024 Orders Only [facility] Neurosurgery [address] [place] [phone] Provider, MD Memo 12/27/2024 Travel 12/14/2024 Transcribe Orders [facility] Neurosurgery [address] [place] [phone] Jose Neville MD Radiculopathy, unspecified spinal region [...] IMG DIGITIZE FILMS Final Resu lt BARI [phone] * MRI External Result (12/27/2024 9:48 AM EDT) Anatomical Region Laterality Modality Magnetic Resonan ce us External Provider MD DAVIS MRI ORDERABLES Final Re sult from Last 3 Months Insurance [facility] OUT OF STATE - PPO MEDICARE PART A & B Care Teams Patient Admitting Representative Relationship Specialty Start Date End Date Daryl Strong MD [address] [place] [id number] PCP - General Internal Medicine 12/14/24
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
--- OUTSIDE RECORDS SUMMARY | 2025-03-14 09:20 | XMS_ITS | Clinical Summary ---
[facility] Organization [facility] Address [address] [place] [address] Care Team Providers Care Sister Superior Name Role Phone Daryl Strong MD Primary Care Provider [phone] Allergies Active Allergy Reactions Criticality Noted Date [...] PO Take by mouth daily. 0 Active Dewey-3 Fatty Acids (FISH OIL) 1000 MG CAPS [...] 82 04/16/2024 2:32 PM EDT Temperature 36.1 C (97 F) 12/03/2022 12:08 PM EDT Respiratory Rate 16 [...] Assessment 2022 Osteoporosis Screening (DEXA Scan) 2022 DTap / Tdap / Td (2 - Td or Tdap) 09/19/2024 09/19/2014 Influenza Vaccine (#1) 2025 2, 06/25/2021, 06/05/2018, Additional history exists Shingrix-Zoster Vaccine Completed 06/27/2020, 06/22 Hepatitis B Vaccines Aged Out No long er eligible based on patient's age to complete this topic RSV Ped < 20 months Aged Out No longe r eligible based on patient's age to complete this topic Medical Devices Implanted Type Area Skin Diving Teacher Device Identifier Shelf Expiration Date Model / Serial / Lot Sponge Surgiflo 8ml Hemostatic Matrix Absorbable Latex Free - [id number] - [id number] Implanted:Qty: 1 on 11/11/2017 [place] [facility] [place] [facility] Hemostatic Agent Anterior: Spine Cervical [employer] 03/28/2019 2991 / / [id number] Xpand Implanted:Qty: 1 on 11/11/2017 by David [place] [facility] [place] Anterior: Spine Cervical [employer] 316.131 / / Plate Prtc 30mm Pinky Xtend - [id number] - [id number] Implanted:Qty: 1 on 11/11/2017 by David Early [place] [facility] [place] Anterior: Spine Cervical [employer] 161.230 / / Screw Bone 4.2mm Selftap - [id number] - [id number] Implanted:Qty: 2 on 11/11/2017 by [place] [facility] [place] Anterior: Spine Cervical [employer] 161.316 / / Screw Bone 16mm [facility] - [id number] - [id number] Implanted:Qty: 2 on 11/11/2017 by David Early [place] [facility] [place] Anterior: Spine Cervical [employer] 161.716 / / Explanted Type Area Skin Diving Teacher Device Identifier Shelf Expiration Date Model / Serial / Lot Cervical Anterior Cages Explanted:Qty: 2 on 11/11/2017 by David Early [place] [facility] [place] Anterior: Spine Cervical Advance Directives For more information, please contact: [phone] Latest Code Status on File Code Status Date Activated Date Inactivated Comments Full Code 11/11/2017 8:24 PM 11/13/2017 8:18 PM This code status was ascertained in the following way: per living will or healthcare instructions . Care Teams Sister Superior Relationship Specialty Start Date End Date Daryl Strong MD [address] [place] [address] PCP - General Internal Medicine 09/03/16
--- OUTSIDE RECORDS SUMMARY | 2025-03-14 09:20 | XMS_ITS | Data Portability ---
Author Organization [place] [facility] Norah Haney [place] Address [address] [place] [address] Care Team Providers Care Avionics Shop Supervisor Name Role Phone LUNA PRATT Referring Provider [phone] LUNA PRATT Primary Care Provider [phone] Assessment Encounter Date Assessment Date Assessment LastModified [...] x-rays are consistent with advanced osteoarthritis with vpks-rf-baqh articulation. After lengthy discussion regarding treatment options she wishes to proceed with viscosupplementation injection. She will give some thought to future planning for total joint arthroplasty. Follow-up pending insurance authorization for gel injection. This patient was seen and evaluated by Handy Braun, MS, PA-C in indirect conjunction with documenting/supervisin [...] insurance for [employer] Authorizati on, insurance preferred med. Choose One: 3 series or 1 seriespr efers 1 Knee Laterality: Right 2023 024 [email or web address] Not available 5 09:37:21 Surgeries None recorded. Imaging XR, knee, 4 or more view 2023 024 [email or web address] [facility], [address], [place], [address], 4 10:23:36 XR, knee, 1 or 2 view 2022 023 audrey [facility], [address], [address], [place], [address], 3 12:22:23 XR, knee, 1 or 2 view 2022 023 audrey [facility], [address], [address], [place], [address], 3 12:22:23 Medication Orders None recorded. Patient TargetsNo targets recorded. Patient Instructions Encounter Date Encounter Id Patient Instructions Last Modified By Organization Details Last Modified Time 07/31/2024 [id number] view X-ray study obtained during today's office encounter show evidence of severe right knee osteoarthritis. There is joint space narrowing, subchondral sclerosis and marginal osteophytosis. Kellgren-Romel grade 4. No evidence of acute fracture or osteolytic findings. Not available 07/31/2024 09:45:48 Reason for Referral None Reported. Problems Name Problem SNOMED Code Status Onset Date Resolution Date Notes Provider Name and Address Organization Details Recorded Time Osteoarthri tis of right knee joint 0668255787092 00 Active 2022 HANDY BRAUN PA-C [address], [place], [address], [place] [facility] 4 09:46:07 Problem Notes None recorded. Procedures Surgical History Date Name Laterality Status Provider Name and Address Organization Details Recorded Time 12/01/19 23 Knee Joint/Bursa Asp & Inj completed Williams Weathers MD [address] [facility] [address], [place], [address], [place] [facility] 11/30/2022 12:17:18 Appendectomy completed Maria D Rodriguez [place] [facility] 11/30/2022 11:15:01 Cholecystectomy completed Maria D Rodriguez [place] [facility] 11/30/2022 11:15:09 excision of lumbar intervertebral disc completed Maria D Rodriguez [place] [facility] 11/30/2022 11:15:24 excision of cervical intervertebral disc completed Maria D Rodriguez [place] [facility] 11/30/2022 11:15:36 Imaging Results None recorded. Procedure Notes None recorded. Medical Equipment None Reported. Allergies Allergen ID Allergen Name Allergen Category Reaction Reaction Severity Criticality Documentation Date Start Date Code Code System Note Provider Name and Address Organization Details Recorded Time 1492 Keflex medicatio n Not available Not available Not available 11/30/202287880 7 RxNorm Maria D Rodriguez null, [place] [facility] 3 11:11:57 1493 Product containin g 3-hydroxy -3-methyl glutaryl- coenzyme A reductase inhibitor (product) medicatio n Not available Not available Not available 11/30/2022 91767 009 SNOMED Maria D Rodriguez null, [place] [facility] 3 11:12:12 Medications Name Sig Start [...] Not Available No t Available amoxicillin 875 mg-potassiu m clavulanate 125 mg tablet TAKE 1 [...] Available Vitals Date Recorded Body height Body mass index (BMI) Body weight Provider Name and Address Organization Details Last Updated DateTime 11/30/2022 167.64 cm 45.8 kg/m2 717820.23 g Maria D Rodriguez [place] [facility] 11/30/2022 11:12:28 Date Recorded Body height Body weight Body mass index (BMI) Provider Name and Address Organization Details Last Updated DateTime 07/31/2024 167.64 cm 664711.05 g 41.2 kg/m2 Kalyani Rizo [place] [facility] 07/31/2024 09:32:25 Social History None recorded. Functional Status None [...] Code Diagnosis Note [id number] MD GODWIN Persaud [address] [facility] [address] [place] [address] 11/30/2022 10:46:26 11/30/2022 11:38:21 Pain of left knee joint 6129268323 86248 M25.562 Pain of ri ght knee joint 4541828226 54462 M25.561 Osteoarthr itis of right knee joint 8241694530 29957 M17.11 [id number] [facility] [address] [facility] [address] [place] [address] 07/31/2024 09:07:34 07/31/2024 09:49:01 Pain of right knee region 8953051598 41069 M25.561 Osteoarthr itis of right knee joint 3875085331 50910 M17.11 Health Concerns Section Related Observation LastModified by Organization Detai ls LastModified Time None Recorded Concern Status LastModified by Organization Details LastModified Time None Recorded Advance Directives Directive None Recorded Payers Insurance Date Sequence Insurance Name Policy Number Policy Hawkins Covered Member ID Hawkins Member ID Guarantor Name 07/31/2024 2 [place]ARE [place]: NGS Sameera Infante [id number] Sameera Infante 07/31/2024 1 [place] [id number] Kyle Infante [id number] Sameera Infante Notes Date Note Type [...] as long as possible. Williams Weathers MD [address] [facility] [address], [place], [address], [place] [facility] 11/30/2022 12:19:08 4 text/html 69-year-old female presents with chief complaint of right knee pain. She has had knee pain for many years. As matter fact, she was told a decade ago that she would likely require total joint arthroplasty. She underwent a meniscal repair greater than 10 years ago. She reports that she has used a number of prescription aans-fgx-zzwvtox medicines with limited relief of her pain. [...] be to take time off of work. HANDY BRAUN PA-C [address], [place], [address], [place] [facility] 07/31/2024 09:47:13 OBGyn Episode No OBEpisode recorded.
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
== END ==
LOC: HO.SL 08:58
PROVIDERS: PCP Internal Medicine; Visit Provider Hospitalist
DX: G47.33 Obstructive sleep apnea (adult) (pediatric) (principal)
CPT/HCPCS: 95806

== ENCOUNTER 2025-05-02 10:00 | Outpatient (AMB) | payer BC, MEDICARE, SELFPAY ==
[2025-05-02 10:04] VITALS: BP 110/56; PULSE 80; O2SAT 96; BMI 35.9
--- NOTE | 2025-05-02 10:04 | MHC.OFFVIS ---
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 Ultimately had abnormal findings of lymphadenopathy a along with FDG uptake in [place] and was recommended to undergo endobronchial ultrasound bronchoscopy. The fine-needle aspirate was positive for non-necrotizing granulomas suspicious for sarcoidosis. She at that time she was having some cardiac symptoms with palpitations and shortness of breath and the recommendation of the time was to follow up with a evaluation for cardiac sarcoid. It is not clear if the patient did have a dedicated cardiac PET or a cardiac MRI. Her symptoms did improve and she was able to come off the prednisone safely. At this point the concern is that she is still having issues with her active carcinoid. She is going to go undergo additional therapies to see if she has to candidate for alternative therapies at this time. During the last visit she was started on Trelegy with good effect. Her respiratory status has significantly improved. She also started Singulair which also helped her allergies. We did try treating her nasal passages with budesonide rinsing, but, she could not tolerate the therapy after 4 days because of severe headaches. Otherwise patient is doing well will be following up in [place] for additional therapies and evaluation for her carcinoid. She did have a PET scan at [facility] she did I do not have the results. She was told that there is no evidence of any active disease anywhere. The patient will undergo endoscopy suite GI to further address the question. In the meantime the question of the sarcoid. We'll have to review the PET scan to see if there's any mediastinal activity like she had in the past. It is possible that this is dormant now. The patient also has some lightheadedness and nausea sensation. It appears that she has a little nystagmus on examination. ? 09/01/2023 the patient is here for a pulmonary follow-up visit. She is feeling overall a lot better. She did get a 2nd opinion regarding her carcinoid and the decision was to hold off on her octreotide therapy since her studies and blood work were reassuring. She has been off the octreotide since the summer. Her constitutional symptoms have overall improved. Her respiratory status has also improved. She also still has her inhalers although she does not require them as often. Denies significant shortness of breath. The patient did have an evaluation with me over the fall. She was having some shortness of breath and tachycardia. Her D-dimer had been elevated and we did go ahead request a CTA. No evidence of any pulmonary emboli. the patient did have some dependent atelectasis and also a thyroid nodule. She had a thyroid nodule evaluated in the past and did have a biopsy also in the past. 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 Will make a referral this time. The patient is also having significant neck pain. She is being already evaluated by Neurosurgery she may need additional surgical interventions. For now though she is doing well from a respiratory status. She continues on the Provigil since his providing some improvement. She is not using her CPAP. The patient is still having some difficulties wearing the head gear because of the neck pain and also having hard time sleeping. Will continue the medicine this time although will consider decreasing in the near future. 05/03/2024 the patient is here for a pulmonary follow-up visit. Overall she is doing very good. She has been off the octreotide still. Still following levels closely no evidence of any active carcinoid. With the fact it has been she has been off the octreotide she is actually said significant weight loss which is reassuring. Her breathing is overall better. She has been able to come off some of the inhalers which is reassuring. Her sleep still difficult. She has not been able to use her CPAP regularly. She needs additional help with her sleep medications. I did recommend increasing the trazodone 150 and she can also use the gabapentin. Hopefully with that she gets more sleep. She is still relying on the modafinil. I am hopeful that if she is able to get more restful sleep that she will not need the modafinil or we can start decreasing the dose. 01/09/2025 the patient is here for a pulmonary follow-up visit. She does complain of increasing shortness of breath. Vmjn-rj-ifyhueiw severity. Seems to be worse when she is active and also when she lays flat. She has also noticed increased weight gain. She has been on her Lasix although she does not PLM. She was also on Aldactone. She is wondering if there is a stronger respiratory inhalers since it is not helping. Right now she is medically optimized on her inhalers. Her inspiratory exam is reassuring. There was a question of pulmonary hypertension on her echo. I do not have the report she likely had an feel. The patient unfortunately has not been tolerating CPAP. The patient does have a history of obstructive sleep apnea. I we explained the importance of using the CPAP specially because of the risk of hypoxic vaso constriction in worsening pulmonary hypertension from the apneic episodes. And now with significant lower extremity edema the patient may have a component of right-sided failure. She will increase the diuretics for the next 2-3 days to see if we can have a better volume status. Will go ahead and request echocardiogram. In the meantime will request another home sleep study in order to get a requalify for CPAP start treating her. 05/02/2025 the patient is here for pulmonary follow-up visit. The patient overall has doing okay. She has been using the CPAP in the CPAP therapy has been very affecting beneficial. She is tolerating it well. Although the machine is for some reason shutting down by itself. She did bring it in to see if we can adjusted. Since she has not been able to use it since it is shutting off by itself she has been sleeping on a recliner. Sometimes her finds her with significant apnea. He is very concerned. Therefore, I did look at the machine and I did shot off the smart on and smart off options which I believe was causing have it. Her AHI is stable and she is responding well to the therapy otherwise. She does tolerate the F 40 mask for a well and is a good fit for her. In regards of her shortness of breath she continues to complain of dyspnea on exertion. Klni-qb-xmpfgcgs severity. She does have an echocardiogram scheduled soon to assess her again for pulmonary hypertension. In the meantime she is maintaining a low-sodium diet and continue her cardioprotective medications. [facility] Medical History (Updated 09/01/23 @ 13:38 by George Masters MD) Thyroid nodule CHF (congestive heart failure) Pulmonary hypertension Stridor Has daytime drowsiness Fatigue Sarcoidosis Carcinoid tumor Asthma LENA (obstructive sleep apnea) Social History Patient Tobacco Use Status: Never used Tobacco Review of Systems Const Denies chills, Denies fatigue, Denies fever(s) and Reports weight loss Eyes Reports no additional complaints ENT Denies dizziness, Denies lip swelling and Denies tongue swelling Card Denies chest pain, Reports leg edema, Denies lightheadedness, Denies palpitations, Reports dyspnea, Reports dyspnea on exertion, Reports orthopnea and Denies other Resp Denies cough, Reports dyspnea and Reports dyspnea on exertion GI Denies hematochezia and Denies change in stool character Musc Denies abnormal gait, Denies muscle weakness, Denies numbness, Denies radiating pain into limb and Denies tingling Neuro Denies abnormal gait, Denies dizziness, Denies numbness and Denies tingling Psych Denies no additional complaints Endo Denies fatigue and Denies palpitations Steve/Lymph Denies easy bleeding and Denies lymphadenopathy Aller/Immun Denies lip swelling and Denies tongue swelling Physical Exam Vital Signs: Last Vital Signs Pulse 80 05/02/25 10:04 BP 110/56 L 05/02/25 10:04 Pulse Ox 96 05/02/25 10:04 Oxygen Delivery Method Room Air 05/02/25 10:04 BMI result Body Mass Index 35.9 Const General: comfortable Nutritional Appearance: overweight Neck Neck: Yes normal visual inspection, Yes full ROM and Yes no lymphadenopathy Chest Chest palpation & inspection: normal inspection of the chest Resp Effort & Inspection: normal respiratory effort Auscultation: diminished lung sounds Cardio Rate: regular rate Rhythm: regular rhythm Heart sounds: S1 normal heart sound present and S2 normal heart sound present GI Palpation (GI): Soft to palpation and nontender Auscultation: normal bowel sounds Skin General skin exam: rashes and/or lesions noted Extrem General: No clubbing, No cyanosis and Yes edema Assessment & Plan Assessment & Plan (1) LENA (obstructive sleep apnea): Code(s): G47.33 - Obstructive sleep apnea (adult) (pediatric) Category: Medical (2) Asthma: Code(s): J45.909 - Unspecified asthma, uncomplicated Category: Medical Qualifiers: Asthma complication type: uncomplicated Asthma persistence: persistent Asthma severity: moderate Qualified Code(s): J45.40 - Moderate persistent asthma, uncomplicated (3) Carcinoid tumor: Comment: Now off Octrotide. Code(s): D3A.00 - Benign carcinoid tumor of unspecified site Category: Medical Qualifiers: Carcinoid tumor location: unspecified site Carcinoid tumor malignancy status: benign Qualified Code(s): D3A.00 - Benign carcinoid tumor of unspecified site (4) Has daytime drowsiness: Code(s): R40.0 - Somnolence Category: Social Hx (5) Pulmonary hypertension: Comment: mild RV dilation, but could not estimate PA pressures. Code(s): I27.20 - Pulmonary hypertension, unspecified Category: Medical (6) Thyroid nodule: Code(s): E04.1 - Nontoxic single thyroid nodule Category: Medical Plan continue Zyrtec decrease Trazodone for sleep 150->100 continue gabapentin Continue singular continue Dulera continue Tessalon pearls short-acting beta agonist as needed Continue APAP no ramp 6-12, F40. Ajusted continue Provigil 200mg, hoping to decrease during the next visit ECHO pending Tessalon pearls as needed follow-up in 6-8 months Medications: Refilled albuterol sulfate 90 mcg/actuation 2 puffs inhalation Q6H PRN 8.5 ea 11RF for wheezing Coding Level of Care Code Est Pt Level 4 (64160) Complex EM visit Add On G2211 Diagnoses LENA (obstructive sleep apnea) G47.33 Moderate persistent asthma without complication J45.40 Asthma complication type: uncomplicated Asthma persistence: persistent Asthma severity: moderate Benign carcinoid tumor, unspecified site D3A.00 Carcinoid tumor location: unspecified site Carcinoid tumor malignancy status: benign Has daytime drowsiness R40.0 Pulmonary hypertension I27.20 Thyroid nodule E04.1 Time Spent (min) 18
--- OUTSIDE RECORDS SUMMARY | 2025-05-02 11:08 | XMS_ITS | Clinical Summary ---
Author Organization [facility] Address [address] [place] [address] Care Team Providers Care Checking Clerk Name Role Phone Daryl Strong Primary Care Provider [phone] Allergies Active Allergy Reactions Criticality Noted Date Comments Cephalexin Rash,Dermatitis Low 11/27/2012 Citalopram Unknown Low 09/03/2016 Not allergies to celexa,wrong info Not allergies to celexa,wrong info Not allergies to celexa,wrong info Povidone-Iodine Rash Low 09/03/2016 Other reaction(s): Rash/Dermatitis Rqitnus-Rtc-Bhz Reductase Inhibitors Other (see comments),Muscle Spasm,Hives 01/05/2017 [...] for now, which were prescribed by OSH reeling machine operator. Start PCP prophy with atovaquone. She is [...] Tdap) 1979 Mammogram 1997 Osteoporosis Screening 2007 Alcohol/Substance Use Screening 08/29/2024 Depression Screening and Follow-Up 08/29/2024 Health Care Proxy Review 08/29/2024 Social Drivers of Health Annual Screening 08/29/2024 Basic Metabolic Panel 03/15/2025 03/15/2024 , 06/23/2023, 01/31/2023 COVID-19 Vaccine (2024- season) 2025 08/18/2023, 07/25/2022, 07/25/2022, Additional history exists Influenza Vaccine (#1) 2025 , 06/15/2022, 06/25/2021, Additional history exists Zoster Vaccines Completed 06/27/2020, 06/22/2019 RSV Vaccine (60+ years old and patients) Completed 09/12/2023 Hepatitis B Vaccines Aged Out No long er eligible based on patient's age to complete [place] [address] [facility] PPO/EPO MEDICARE Care Teams Checking Clerk Relationship Specialty Start Date End Date Daryl Strong [address] [place] [address] PCP - General Internal Medicine 12/20/23
--- OUTSIDE RECORDS SUMMARY | 2025-05-02 11:08 | XMS_ITS | Encounter Summary ---
Author Organization [facility] Address [address] [place] [address] Phone Care Team Providers Care Custom Harvester Name Role Phone Daryl Strong MD Primary Care Provider Michael Monroe MD Unavailable George Masters MD Unavailable Noe Chawla MD Unavailable AngelyKaden malik W DO Unavailable Elma Eisenberg PROJECT ASST Unavailable Sabina Li FUEL CELL BINDER Unavailable Reason for Visit * Reason Comments Medication Refill Encounter Details Date Type Department Care Team (Late st Contact Info) Description 08/19/2017 Refill [facility] [address] [facility], 7th Floor, [address] [place] [address] Michael Monroe MD [address] [facility] [address] [place] [address] [email or web address] Medication Refill Social History Tobacco Use Types Packs/Day Years Used Date Smoking Tobacco: Never Comments Unknown Sex and Gender Information Value Date Recorded Sex Assigned at Not on file Legal Sex Female 7:05 PM EST Gender Identity Not on file Sexual Orientation Not on file documented as of this encounter Plan of Treatment Upcoming Encounters Date Type Department Care Team (Late st Contact Info) Description 05/02/2025 3:30 PM EDT Office Visit [facility] Department of Neurosurgery [address] [place] [address] Flaquita Soriano PA-C [address] [place] [address] [email or web address] 09/12/2025 8:20 AM EST Office Visit [facility] [address] [place] [address] Pilar Tee MD [address] [address] [email or web address] documented as of this encounter Visit Diagnoses Not on filedocumented in this encounter Additional Health Concerns Infection Onset Date Last Indicated Resolved Time CoV-Exposed Comment:Recent close contact documented in the COVID-19 PCR/PRO order 10/10/2021 10/12/2021 10/21/2021 1:[address] documented as of this encounter Care Teams Custom Harvester Relationship Specialty Start Date End Date Daryl Strong MD [address] [place] [id number] PCP - General 02/26/14 Michael Monroe MD [address] [place] [address] [address] [place] [address] [email or web address] Primary Oncologist Internal Medicine 04/08/16 George Masters MD [address] [place] [address] [place] [address] Pulmonary Disease 03/27/18 Noe Chawla MD [address] [place] [address] [place] [address] Cardiology 03/27/18 Kaden Au DO [address] [place] [address] [email or web address] Primary Oncologist Hematology and Oncology 07/09/20 Elma Eisenberg FNP [address] [place] [address] [email or web address] Nurse Practitioner Medical Oncology 11/27/20 Sabina Li CNP [address] [place] [address] [email or web address] Nurse Practitioner Medical Oncology 10/28/21 documented as of this encounter Additional Source Comments The information contained in this document represents components of the legal health record. It is not the complete legal health record.[facility]
--- OUTSIDE RECORDS SUMMARY | 2025-05-02 11:08 | XMS_ITS | Clinical Summary ---
Author Organization [facility] Address [address] [place] [address] Care Team Providers Care Pig Lead Melter Helper Name Role Phone Daryl Strong MD Primary Care Provider [phone] Allergies Active Allergy Reactions Criticality Noted Date [...] PO Take by mouth daily. 0 Active [place]-3 Fatty Acids (FISH OIL) 1000 MG CAPS [...] (Colonoscopy) 2002 Breast Cancer Screening (Mammogram) 2007 BMI Counseling 01/20/2020 01/19/2019, 10/06/2018 Pneumococcal Vaccine (2 of 2 - PCV) 11/14/2020 11/15/2019 Fall Risk Assessment 2022 Osteoporosis Screening (DEXA Scan) 2022 COVID-19 Vaccine (3 - season) 2024 11/05/2020, 10/16/2020 DTap / Tdap / Td (2 - Td or Tdap) 09/19/2024 09/19/2014 Influenza Vaccine (#1) 2025 2, 06/25/2021, 06/05/2018, Additional history exists RSV Adult > 60+ Yrs or (1 - 1-dose 75+ series) 02/15/2032 Shingrix-Zoster Vaccine Completed 06/27/2020, 06/22 Hepatitis B Vaccines Aged Out No long er eligible based on patient's age to complete this topic RSV Ped < 20 months Aged Out No longe r eligible based on patient's age to complete this topic Medical Devices Implanted Type Area Corporate Analyst Device Identifier Shelf Expiration Date Model / Serial / Lot Sponge Surgiflo 8ml Hemostatic Matrix Absorbable Latex Free - [id number] - [id number] Implanted:Qty: 1 on 11/11/2017 by David Early [place] [facility] Hemostatic Agent Anterior: Spine Cervical [employer] 03/28/2019 [id number] / / [id number] Xpand Implanted:Qty: 1 on 11/11/2017 by David Early MD at [facility] Med Anterior: Spine Cervical [employer] 316.131 / / Plate Prtc 30mm Pinky Xtend - [id number] - [id number] Implanted:Qty: 1 on 11/11/2017 by David Early MD at [facility] and Med Anterior: Spine Cervical [employer] 161.230 / / Screw Bone 4.2mm Selftap - [id number] - [id number] Implanted:Qty: 2 on 11/11/2017 by David Early MD at [facility] and Med Anterior: Spine Cervical [employer] 161.316 / / Screw Bone 16mm [facility] - [id number] - [id number] Implanted:Qty: 2 on 11/11/2017 by David Early MD at [facility] and Med Anterior: Spine Cervical [employer] 161.716 / / Explanted Type Area Corporate Analyst Device Identifier Shelf Expiration Date Model / Serial / Lot Cervical Anterior Cages Explanted:Qty: 2 on 11/11/2017 by David Early MD at [facility] Med Anterior: Spine Cervical Advance Directives For more information, please contact: [phone] Latest Code Status on File Code Status Date Activated Date Inactivated Comments Full Code 11/11/2017 8:24 PM 11/13/2017 8:18 PM This code status was ascertained in the following way: per living will or healthcare instructions . Care Teams Pig Lead Melter Helper Relationship Specialty Start Date End Date Daryl Strong MD [address] [place] [address] PCP - General Internal Medicine 09/03/16
--- OUTSIDE RECORDS SUMMARY | 2025-05-02 11:08 | XMS_ITS | Encounter Summary ---
Author Organization [facility] Address [address] [place] [address] Phone Care Team Providers Care Facility Maintenance Worker Name Role Phone Daryl Strong MD Primary Care Provider [phone] Michael Monroe MD Unavailable George Masters MD Unavailable Noe Chawla MD Unavailable [phone] AngelyKaden malik W DO Unavailable [phone] Elma Eisenberg PREMIUM CANCELLATION CLERK Unavailable Sabina Li LEVEE SUPERINTENDENT Unavailable Encounter Details Date Type Department Care Team (Late st Contact Info) Description 04/06/2018 Procedure Pass [facility] PERIOPERATIVE DEPT [address] [place] [id number] Social History Tobacco Use Types Packs/Day Years Used Date Smoking Tobacco: Never Smokeless Tobacco: Never Alcohol Use Standard Drinks/Week Comments Yes 0 (1 standard drink = 0.6 oz pur e alcohol) social Comments Unknown Sex and Gender Information Value Date Recorded Sex Assigned at Not on file Legal Sex Female 7:05 PM EST Gender Identity Not on file Sexual Orientation Not on file documented as of this encounter Plan of Treatment Upcoming Encounters Date Type Department Care Team (Late Contact Info) Description 05/02/2025 3:30 PM EDT Office Visit [facility] Department of Neurosurgery [address] [place] [address] Flaquita Soriano PA-C [address] [place] [address] [email or web address] 09/12/2025 8:20 AM EST Office Visit [facility] [address] [place] [address] Pilar Tee MD [address] [place] [address] [email or web address] documented as of this encounter Visit Diagnoses Not on filedocumented in this encounter Additional Health Concerns Infection Onset Date Last Indicated Resolved Time CoV-Exposed Comment:Recent close contact documented in the COVID-19 PCR/PRO order 10/10/2021 10/12/2021 10/21/2021 1:[address] documented as of this encounter Care Teams Facility Maintenance Worker Relationship Specialty Start Date End Date Daryl Strong MD [address] [place] [phone] [email or web address] PCP - General 02/26/14 Michael Monroe MD [address] [place] [address] [address] [email or web address] Primary Oncologist Internal Medicine 04/08/16 George Masters MD [address] [place] [address] [place] [address] Pulmonary Disease 03/27/18 Noe Chawla MD [address] [place] [address] [place] [address] Cardiology 03/27/18 Kaden Au DO [address] [place] [address] [email or web address] Primary Oncologist Hematology and Oncology 07/09/20 Elma Eisenberg FNP [address] [place] [address] [email or web address] Nurse Practitioner Medical Oncology 11/27/20 Sabina Li CNP [address] [place] [address] [email or web address] Nurse Practitioner Medical Oncology 10/28/21 documented as of this encounter Additional Source Comments The information contained in this document represents components of the legal health record. It is not the complete legal health record.[facility]
--- OUTSIDE RECORDS SUMMARY | 2025-05-02 11:08 | XMS_ITS | Encounter Summary ---
Author Organization [facility] Address [address] [place] [address] Phone Care Team Providers Care Internal Communications Manager Name Role Phone Daryl Strong MD Primary Care Provider [phone] Michael Monroe MD Unavailable George Masters MD Unavailable Noe Chawla MD Unavailable Angely, Kaden W DO Unavailable Elma Eisenberg SWIMMING PROFESSOR Unavailable [phone] Sabina Li PRODUCT DEVELOPMENT SCIENTIST Unavailable Encounter Details Date Type Department Care Team (Late st Contact Info) Description 06/27/[address] [facility] MRI, [facility] [address] [place] [address], 6th [place] [address] Social History Tobacco Use Types Packs/Day Years [...] Description 05/02/2025 3:30 PM EDT Office Visit [facility] Department of Neurosurgery 60 [place], [place] [phone] Flaquita Soriano PA-C 60 [place] [address] 09/12/2025 8:20 AM EST Office Visit [facility] [address] [place] [address] Pilar Tee MD [address] [address] [email or web address] documented as of this encounter Visit Diagnoses Not on filedocumented in this encounter Additional Health Concerns Infection Onset Date Last Indicated Resolved Time CoV-Exposed Comment:Recent close contact documented in the COVID-19 PCR/PRO order 10/10/2021 10/12/2021 10/21/2021 1:[address] documented as of this encounter Care Teams Internal Communications Manager Relationship Specialty Start Date End Date Daryl Strong MD [address] [place] [address] PCP - General 02/26/14 Michael Monroe MD [address] [place] [address] [email or web address] Primary Oncologist Internal Medicine 04/08/16 eGorge Masters MD [address] [place] [address] [place] [address] Pulmonary Disease 03/27/18 Noe Chawla MD [address] [place] [address] [place] [address] Cardiology 03/27/18 Kaden Au DO 30 [place] [address] [email or web address] Primary Oncologist Hematology and Oncology 07/09/20 Elma Eisenberg FNP [address] [place] [address] [email or web address] Nurse Practitioner Medical Oncology 11/27/20 Sabina Li CNP [address] [place] [address] [email or web address] Nurse Practitioner Medical Oncology 10/28/21 documented as of this encounter Additional Source Comments The information contained in this document represents components of the legal health record. It is not the complete legal health record.[facility]
--- OUTSIDE RECORDS SUMMARY | 2025-05-02 11:08 | XMS_ITS | Encounter Summary ---
Author Organization [facility] Address [address] [place] [address] [address] [place] [address] Phone Care Team Providers Care Slope Runner Name Role Phone Daryl Strong MD Primary Care Provider Michael Monroe MD Unavailable [phone] George Masters MD Unavailable Noe Chawla MD Unavailable Angely, Kaden W DO Unavailable [phone] Elma Eisenberg NURSERYPERSON Unavailable PackSabina HEEL PRICKER Unavailable Encounter Details Date Type Department Care Team (Late st Contact Info) Description 09/22/2017 Procedure Pass [facility] CT, Efra [address] [facility], 2nd Floor, [address] [place] [address] Social History Tobacco Use Types Packs/Day Years Used Date Smoking Tobacco: Never Smokeless Tobacco: Never Comments Unknown Sex and Gender Information Value Date Recorded Sex Assigned at Not on file Legal Sex Female 7:05 PM EST Gender Identity Not on file Sexual Orientation Not on file documented as of this encounter Plan of Treatment Upcoming Encounters Date Type Department Care Team (Late st Contact Info) Description 05/02/2025 3:30 PM EDT Office Visit [facility] Department of Neurosurgery [address] [place] [address] Flaquita Soriano PA-C 60 [place] [address] 09/12/2025 8:20 AM EST Office Visit [facility] 22 [place] [address] Pilar Tee MD [address] [address] [email or web address] documented as of this encounter Visit Diagnoses Not on filedocumented in this encounter Additional Health Concerns Infection Onset Date Last Indicated Resolved Time CoV-Exposed Comment:Recent close contact documented in the COVID-19 PCR/PRO order 10/10/2021 10/12/2021 10/21/2021 1:[address] documented as of this encounter Care Teams Slope Runner Relationship Specialty Start Date End Date Daryl Strong MD [address] [place] [phone] [email or web address] PCP - General 02/26/14 Michael Monroe MD [address] [place] [address] [address] [email or web address] Primary Oncologist Internal Medicine 04/08/16 George Masters MD [address] [place] [address] [place] [address] Pulmonary Disease 03/27/18 Noe Chawla MD [address] [place] [address] [place] [address] Cardiology 03/27/18 Kaden Au DO 30 [place] [address] [email or web address] Primary Oncologist Hematology and Oncology 07/09/20 Elma Eisenberg FNP [address] [place] [address] [email or web address] Nurse Practitioner Medical Oncology 11/27/20 Sabina Li CNP [address] [place] [address] [email or web address] Nurse Practitioner Medical Oncology 10/28/21 documented as of this encounter Additional Source Comments The information contained in this document represents components of the legal health record. It is not the complete legal health record.[facility]
--- OUTSIDE RECORDS SUMMARY | 2025-05-02 11:08 | XMS_ITS | Encounter Summary ---
Author Organization [facility] Address [address] [place] [address] [address] [place] [address] Phone Care Team Providers Care Ferryboat Operator Helper Name Role Phone Daryl Strong MD Primary Care Provider Michael Monroe MD Unavailable [phone] George Masters MD Unavailable Noe Chawla MD Unavailable [phone] AngelyKaden malik W DO Unavailable Elma Eisenberg TRIPE WASHER Unavailable Sabina Li CHILDHOOD TEACHER Unavailable Reason for Visit * Reason Comments Other Encounter Details Date Type Department Care Team ([facility] Contact Info) Description 01/27/2017 Refill [facility] 32 [facility], 7th Floor, [address] [place] [address] Photopoulos, Krystal N, CHILDHOOD TEACHER [address] [place] [address] [email or web address] Other Social History Tobacco Use Types Packs/Day Years [...] 05/02/2025 3:30 PM EDT Office Visit [facility] Department of Neurosurgery 60 [place] [address] Flaquita Soriano PA-C 60 [place] [address] 09/12/2025 8:20 AM EST Office Visit [facility] 22 [place] [address] Pilar Tee MD [address] [address] [email or web address] documented as of this encounter Visit Diagnoses Not on filedocumented in this encounter Additional Health Concerns Infection Onset Date Last Indicated Resolved Time CoV-Exposed Comment:Recent close contact documented in the COVID-19 PCR/PRO order 10/10/2021 10/12/2021 10/21/2021 1:[address] documented as of this encounter Care Teams Ferryboat Operator Helper Relationship Specialty Start Date End Date Daryl Strong MD [address] [place] [address] [email or web address] PCP - General 02/26/14 Michael Monroe MD [address] [place] [address] [address] [email or web address] Primary Oncologist Internal Medicine 04/08/16 George Masters MD [address] [place] [address] [place] [address] Pulmonary Disease 03/27/18 Noe Chawla MD [address] [place] [address] Dr [place] [phone] Cardiology 03/27/18 Kaden Au DO [address] [place] [address] [email or web address] Primary Oncologist Hematology and Oncology 07/09/20 Elma Eisenberg FNP [address] [place] [address] [email or web address] Nurse Practitioner Medical Oncology 11/27/20 Sabina Li CNP [address] [place] [address] [email or web address] Nurse Practitioner Medical Oncology 10/28/21 documented as of this encounter Additional Source Comments The information contained in this document represents components of the legal health record. It is not the complete legal health record.[facility]
--- OUTSIDE RECORDS SUMMARY | 2025-05-02 11:08 | XMS_ITS | Encounter Summary ---
Author Organization [facility] Address [address] [place] [address] Phone Care Team Providers Care Lmft Name Role Phone Daryl Strong MD Primary Care Provider Michael Monroe MD Unavailable [phone] George Masters MD Unavailable Noe Chawla MD Unavailable AngelyKaden malik W DO Unavailable [phone] Elma Eisenberg NYLON MENDER Unavailable [phone] Sabina Li BILLET SAWYER Unavailable Reason for Referral * MRI/CAT Scan (Emergency) - Closed Specialty Diagnoses / Procedures Referred By Contac t Referred To Contact Radiology Diagnoses Malignant neuroendocrine neoplasm Procedures CT PET Abdomen/Pelvis Michael Monroe MD Phone: tel: fax: mailto:[email or web address] [address] Phone: tel: Referral ID Status Reason Start Date Expiration Date Visits Re quested Visits Authorized [id number] Closed 06/18/2019 07/18/2019 1 1 * MRI/CAT Scan (Emergency) - Closed Specialty Diagnoses / Procedures Referred By Contac t Referred To Contact Radiology Diagnoses Malignant neuroendocrine neoplasm Procedures CT PET Chest Michael Monroe MD Phone: tel: fax: mailto:[email or web address] [address] [place] [address] Phone: tel: Referral ID Status Reason Start Date Expiration Date Visits Re quested Visits Authorized [id number] Closed 06/18/2019 07/18/2019 1 1 Encounter Details Date Type Department Care Team (Latest Contact Info) Description 06/18/2019 Ancillary Orders [facility] [address] [facility], 7th Floor, [address] [place] [address] Michael Monroe MD 55 [facility] [address] [place] [address] [email or web address] Malignant neuroendocrine neoplasm Social History Tobacco Use Types Packs/Day Years [...] Description 05/02/2025 3:30 PM EDT Office Visit [facility] Department of Neurosurgery 60 [place] [address] Flaquita Soriano PA-C 60 [place] [address] [email or web address] 09/12/2025 8:20 AM EST Office Visit [facility] [address] [place] [address] Pilar Tee MD [address] [place] [address] [email or web address] documented as of this encounter Results * CT PET ABDOMEN/PELVIS WITH CONTRAST (06/18/2019 9:27 AM EDT) Anatomical Region Laterality Modality Abdomen, Pelvis Positron Emissio n Tomography (PET) 06/18/2019 10:5 5 AM EDT Impressions 06/18/2019 5:28 PM EDT No evidence for metastatic disease within the abdomen or pelvis. ATTESTATION: I, Dr. Davide Rico as teaching physician, have reviewed the images for this case and if necessary edited the report originally created by Dr. Carmen Jay. Narrative 06/18/2019 5:28 PM EDT TECHNIQUE: Diagnostic CT scan of the abdomen and pelvis WITH intravenous contrast COMPARISON: CT abdomen pelvis February 19, 2018; MR abdomen July 24, 2017 HISTORY: 64-year-old female with neuroendocrine tumor, on octreotide. FINDINGS: LOWER THORAX: Please refer to report from concurrently performed chest CT. HEPATOBILIARY: Unchanged hepatic cysts. No suspicious focal liver lesion. Mild intra and extrahepatic biliary duct dilatation, likely on the basis of prior cholecystectomy. SPLEEN: No splenomegaly. PANCREAS: No focal masses or ductal dilatation. ADRENALS: No adrenal nodules. KIDNEYS/URETERS: No hydronephrosis, stones, or solid mass lesions. Simple left renal cyst. PELVIC ORGANS/BLADDER: Asymmetrically prominent left ovary, not significantly changed from August 2008. PERITONEUM / RETROPERITONEUM: No free air or fluid. LYMPH NODES: No lymphadenopathy. VESSELS: Circumaortic left renal vein. Trace atherosclerotic calcification of the aorta. GI TRACT: No distention or wall thickening. Scattered colonic diverticula. BONES AND SOFT TISSUES: Multilevel degenerative changes throughout the visualized spine. No acute osseous abnormality. Status post posterior fusion of L4-5. Procedure Note Davide Rico MD - 06/18/2019 TECHNIQUE: Diagnostic CT scan of the abdomen and pelvis WITH intravenous contrast COMPARISON: CT abdomen pelvis February 19, 2018; MR abdomen June HISTORY: 64-year-old female with neuroendocrine tumor, on octreotide. FINDINGS: LOWER THORAX: Please refer to report from concurrently performed chestCT. HEPATOBILIARY: Unchanged hepatic cysts. No suspicious focal liver lesion.Mild intra and extrahepatic biliary duct dilatation, likely on the basis ofprior cholecystectomy. SPLEEN: No splenomegaly. PANCREAS: No focal masses or ductal dilatation. ADRENALS: No adrenal nodules. KIDNEYS/URETERS: No hydronephrosis, stones, or solid mass lesions. Simpleleft renal cyst. PELVIC ORGANS/BLADDER: Asymmetrically prominent left ovary, notsignificantly changed from August 2008. PERITONEUM / RETROPERITONEUM: No free air or fluid. LYMPH NODES: No lymphadenopathy. VESSELS: Circumaortic left renal vein. Trace atherosclerotic calcificationof the aorta. GI TRACT: No distention or wall thickening. Scattered colonicdiverticula. BONES AND SOFT TISSUES: Multilevel degenerative changes throughout the visualized spine. No acute osseous abnormality. Status post posteriorfusion of L4-5. IMPRESSION: No evidence for metastatic disease within the abdomen or pelvis. ATTESTATION: I, Dr. Davide Rico as teaching physician, havereviewed the images for this case and if necessary edited the report originallycreated by Dr. Carmen Jay. us Michael Monroe MD IMG CT PETCT Final R esult * CT PET CHEST WITH CONTRAST (06/18/2019 9:27 AM EDT) Anatomical Region Laterality Modality Chest Positron Emissio n Tomography (PET) 06/18/2019 10:5 2 AM EDT Impressions 06/18/2019 1:22 PM EDT Surveillance of GI neuroendocrine tumor. No PET/CT evidence of metastatic disease in the thorax. Narrative 06/18/2019 1:22 PM EDT TECHNIQUE: Diagnostic CT PET CHEST WITH CONTRAST HISTORY: As given in the header. COMPARISON: CT CHEST WITH CONTRAST FINDINGS: Lungs: Previously described 6 mm and 2 mm LEFT perifissural nodules are stable and have the morphology of intrapulmonary lymph nodes. No new or enlarging pulmonary nodules are demonstrated. Airways: The major airways are clear. Pleura: There is no evidence of pleural effusion or pneumothorax. Heart and mediastinum: No significant mediastinal, hilar or axillary lymphadenopathy is seen.The heart and the mediastinum are within normal limits. Bones and soft tissues: The bones of the and chest are stable in appearance. There moderate degenerative changes in the mid and lower thoracic spine but no suspicious lytic or blastic lesions. Procedure Note Az Carrion MD - 06/18/2019 TECHNIQUE: Diagnostic CT PET CHEST WITH CONTRAST HISTORY: As given in the header. COMPARISON: CT CHEST WITH CONTRAST FINDINGS: Lungs: Previously described 6 mm and 2 mm LEFT perifissural nodules arestable and have the morphology of intrapulmonary lymph nodes. No new orenlarging pulmonary nodules are demonstrated. Airways: The major airways are clear. Pleura: There is no evidence of pleural effusion or pneumothorax. Heart and mediastinum: No significant mediastinal, hilar or axillary lymphadenopathy is seen.The heart and the mediastinum are within normallimits. Bones and soft tissues: The bones of the and chest are stable inappearance. There moderate degenerative changes in the mid and lower thoracic spinebut no suspicious lytic or blastic lesions. IMPRESSION: Surveillance of GI neuroendocrine tumor. No PET/CT evidence of metastatic disease in the thorax. Michael Monroe MD IMG CT PETCT Final R esult documented in this encounter Visit Diagnoses Diagnosis Malignant neuroendocrine neoplasm Malignant neuroendocrine neoplasm documented in this encounter Additional Health Concerns Infection Onset Date Last Indicated Resolved Time CoV-Exposed Comment:Recent close contact documented in the COVID-19 PCR/PRO order 10/10/2021 10/12/2021 10/21/2021 1:[address] documented as of this encounter Care Teams Lmft Relationship Specialty Start Date End Date Daryl Strong MD [address] [place] [phone] [email or web address] PCP - General 02/26/14 Michael Monroe MD [address] [place] [address] [address] [place] [address] [email or web address] Primary Oncologist Internal Medicine 04/08/16 George Masters MD [address] [place] [address] [place] [address] Pulmonary Disease 03/27/18 Noe Chawla MD [address] [place] [address] [place] [address] Cardiology 03/27/18 Kaden Au DO [address] [place] [address] [email or web address] Primary Oncologist Hematology and Oncology 07/09/20 Elma Eisenberg FNP [address] [place] [address] Nurse Practitioner Medical Oncology 11/27/20 Sabina Li CNP [address] [place] [address] Nurse Practitioner Medical Oncology 10/28/21 documented as of this encounter Additional Source Comments The information contained in this document represents components of the legal health record. It is not the complete legal health record.[facility]
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
--- OUTSIDE RECORDS SUMMARY | 2025-05-02 11:08 | XMS_ITS | Encounter Summary ---
Author Organization [facility] Address [address] [place] [phone] Phone Care Team Providers Care Respiratory Therapy Technician Name Role Phone Daryl Strong MD Primary Care Provider Michael Monroe MD Unavailable George Masters MD Unavailable Noe Chawla MD Unavailable AngelyKaden malik W DO Unavailable Elma Eisenberg BOILER TENDER Unavailable Sabina Li ENVIRONMENTAL ISSUES INSTRUCTOR Unavailable Reason for Visit * Reason Comments Medication Refill Encounter Details Date Type Department Care Team (Late st Contact Info) Description 07/25/2019 Refill [facility] [address] [facility], 7th Floor, [address] [place] [address] Michael Monroe MD [address] [facility] [address] [place] [address] [email or web address] Medication Refill Social History Tobacco Use Types [...] Description 05/02/2025 3:30 PM EDT Office Visit [facility] Department of Neurosurgery [address] [place] [address] Flaquita Soriano PA-C 60 [place] [address] [email or web address] 09/12/2025 8:20 AM EST Office Visit [facility] [address] [place] [address] Pilar Tee MD [address] [address] [email or web address] documented as of this encounter Visit Diagnoses Not on filedocumented in this encounter Additional Health Concerns Infection Onset Date Last Indicated Resolved Time CoV-Exposed Comment:Recent close contact documented in the COVID-19 PCR/PRO order 10/10/2021 10/12/2021 10/21/2021 1:[address] documented as of this encounter Care Teams Respiratory Therapy Technician Relationship Specialty Start Date End Date Daryl Strong MD [address] [place] [address] [email or web address] PCP - General 02/26/14 Michael Monroe MD [address] [place] [address] [address] [place] [address] [email or web address] Primary Oncologist Internal Medicine 04/08/16 George Masters MD [address] [place] [address] [place] [address] Pulmonary Disease 03/27/18 Noe Chawla MD [address] [place] [address] [place] [address] Cardiology 03/27/18 Kaden Au DO [address] [place] [address] [email or web address] Primary Oncologist Hematology and Oncology 07/09/20 Elma Eisenberg FNP [address] [place] [address] Nurse Practitioner Medical Oncology 11/27/20 Sabina Li CNP [address] [place] [address] Nurse Practitioner Medical Oncology 10/28/21 documented as of this encounter Additional Source Comments The information contained in this document represents components of the legal health record. It is not the complete legal health record.[facility]
--- OUTSIDE RECORDS SUMMARY | 2025-05-02 11:08 | XMS_ITS | Encounter Summary ---
Author Organization [facility] Address [address] [place] [phone] Phone Care Team Providers Care Criminal Justice Instructor Name Role Phone Daryl Strong MD Primary Care Provider Michael Monroe MD Unavailable George Masters MD Unavailable Noe Chawla MD Unavailable [phone] AngelyKaden malik W DO Unavailable Elma Eisenberg BASEBOARD HEATING INSTALLER Unavailable Sabina Li SUPERVISORY LIFEGUARD Unavailable Reason for Visit * Reason Comments Medication Refill Encounter Details Date Type Department Care Team (Late st Contact Info) Description 08/03/[address] [facility] [address] [facility], 7th Floor, [address] [place] [address] Michael Monroe MD [address] [facility] [address] [place] [address] [email or web address] Medication Refill Social History Tobacco Use Types [...] Description 05/02/2025 3:30 PM EDT Office Visit [facility] Department of Neurosurgery [address] [place] [address] Flaquita Soriano PA-C 60 [place] [address] [email or web address] 09/12/2025 8:20 AM EST Office Visit [facility] [address] [place] [address] Pilar Tee MD [address] [address] [email or web address] documented as of this encounter Visit Diagnoses Not on filedocumented in this encounter Additional Health Concerns Infection Onset Date Last Indicated Resolved Time CoV-Exposed Comment:Recent close contact documented in the COVID-19 PCR/PRO order 10/10/2021 10/12/2021 10/21/2021 1:[address] documented as of this encounter Care Teams Criminal Justice Instructor Relationship Specialty Start Date End Date Daryl Strong MD [address] [place] [address] [email or web address] PCP - General 02/26/14 Michael Monroe MD [address] [place] [address] [address] [place] [address] [email or web address] Primary Oncologist Internal Medicine 04/08/16 George aMsters MD [address] [place] [address] [place] [address] Pulmonary Disease 03/27/18 Noe Chawla MD [address] [place] [address] [place] [address] Cardiology 03/27/18 Kaden Au DO [address] [place] [address] [email or web address] Primary Oncologist Hematology and Oncology 07/09/20 Elma Eisenberg FNP [address] [place] [address] Nurse Practitioner Medical Oncology 11/27/20 Sabina Li CNP [address] [place] [address] Nurse Practitioner Medical Oncology 10/28/21 documented as of this encounter Additional Source Comments The information contained in this document represents components of the legal health record. It is not the complete legal health record.[facility]
--- OUTSIDE RECORDS SUMMARY | 2025-05-02 11:08 | XMS_ITS | Encounter Summary ---
Author Organization [facility] Address [address] [place] [address] [address] [place] [address] Phone Care Team Providers Care Bleach Boiler Packer Name Role Phone Daryl Strong MD Primary Care Provider Michael Monroe MD Unavailable George Masters MD Unavailable Noe Chawla MD Unavailable Angely, Kaden W DO Unavailable [phone] Elma Eisenberg JUMPBASTING LINING BASTER Unavailable PackSabina DIRECTOR INPATIENT HEADACHE PROGRAM Unavailable Encounter Details Date Type Department Care Team (Late st Contact Info) Description 02/02/2018 Procedure Pass [facility] [place] CT, Efra [address] [facility], 2nd Floor, [address] [place] [address] Social History Tobacco Use Types Packs/Day Years [...] 05/02/2025 3:30 PM EDT Office Visit [facility] Department of Neurosurgery [address] [place] [address] Flaquita Soriano PA-C 60 [place] [address] 09/12/2025 8:20 AM EST Office Visit [facility] 22 [place] [address] Pilar Tee MD [address] [address] [email or web address] documented as of this encounter Visit Diagnoses Not on filedocumented in this encounter Additional Health Concerns Infection Onset Date Last Indicated Resolved Time CoV-Exposed Comment:Recent close contact documented in the COVID-19 PCR/PRO order 10/10/2021 10/12/2021 10/21/2021 1:[address] documented as of this encounter Care Teams Bleach Boiler Packer Relationship Specialty Start Date End Date Daryl Strong MD [address] [place] [address] [email or web address] PCP - General 02/26/14 Michael Mornoe MD [address] [place] [address] [address] [email or web address] Primary Oncologist Internal Medicine 04/08/16 George Masters MD [address] [place] [address] [place] [address] Pulmonary Disease 03/27/18 Noe Chawla MD [address] [place] [address] [place] [address] Cardiology 03/27/18 Kaden Au DO 30 [place] [address] [email or web address] Primary Oncologist Hematology and Oncology 07/09/20 Elma Eisenberg FNP [address] [place] [address] [email or web address] Nurse Practitioner Medical Oncology 11/27/20 Sabina Li CNP [address] [place] [address] [email or web address] Nurse Practitioner Medical Oncology 10/28/21 documented as of this encounter Additional Source Comments The information contained in this document represents components of the legal health record. It is not the complete legal health record.[facility]
--- OUTSIDE RECORDS SUMMARY | 2025-05-02 11:09 | XMS_ITS ---
Author Organization [facility] Address [address] [place] [id number] Phone Care Team Providers Care Industrial Electrician Journeyman Name Role Phone Daryl Strong MD Primary Care Provider [phone] Michael Monroe MD Unavailable [phone] George Masters MD Unavailable [phone] Noe Chawla MD Unavailable AngelyKaden malik W DO Unavailable Elma Eisenberg HEARING AID REPAIRER Unavailable Sabina Li TRACTOR TRAILER MECHANIC Unavailable Active Problems Patient Care Coordination No te Formatting of this note migh t be different from the original. Height 167.7cm no shoes 11/29/2022 Problem Noted Date Diagnosed Date Multinodular goiter 09/06/2024 Assessment & Plan (09/06/2024 12:57 PM EST): 69 yo woman with MNG, s/p FNA 2020 w/ presumably benign results. She is clinically euthyroid & has no compressive symptoms. Will obtain old records from [facility]. Will obtain cytology results & any recent TFTs. Will repeat ultrasound. Asked her to contact us when it's done so we can track down results. 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 Based [...] for now, which were prescribed by OSH payroll accounting clerk. Start PCP prophy with atovaquone. She is allergic to sulfa. - Repeat chest CT. Consider mediastinoscopy to obtain larger biopsies. - Plan to discuss case at [facility]. Dyspnea on exertion 09/01/2018 Assessment & Plan (09/01/2018 5:18 PM EST): PFTs normal. Pt reports cardiac work-up at [...] very much in favor of for her. Carcinoid syndrome 09/01/2018 Assessment & Plan (06/19/2020 8:06 PM EDT): Patient requested refill on ritalin, marinol, and an anti-spasmodic medication donnatol. I noted she has a bit of polypharmacy and a palliative care consultation for symptom management. Lymphadenopathy 09/01/2018 Pulmonary nodule 09/01/2018 Encounter for palliative care 09/07/2016 Assessment & Plan (07/09/2019 10:08 PM EST): Nausea: Long history of nausea that seems to be multifactorial, related to delayed gastric emptying, her carcinoid tumor, treatment with octreotide, +/- GERD, constipation. Zyprexa tried twice, too sedating though is helpful for nausea. Risperidone also too sedating. Reglan successfully tapered off. -Continue marinol 20 mg po QID (decided to use this medication rather than medical marajuana) -Continue ativan (0.5 mg) prn nausea, although has been advised to use sparingly -She will continue to log her symptoms to better understand the patters so that she can better pace herself - She finds Phenergen prescribed by her pcp to help; she will continue using this prn Chronic low back pain: s/p back surgery/fusion - Using prn percocet (not prescribed by palliative care) Idiopathic neuropathy: - continue gabapentin 600/600/1200 (gets burning in her feet when she lowers this dose) - has decreased duloxetine to 60 mg daily (also for depression) Fatigue: Improved somewhat with Ritalin. -Continue Ritalin 10-20 mg PO BID -Continue BiPAP at night Depression/anxiety: Improved since back surgery and with Bipap use, and feeling much better since SOB has improved with sarcoid treatment. -PCP will take over prescribing her duloxetine (her psychiatrist in [facility] has moved); she is taking 60 mg daily Insomnia: - Continuing ambien and PRN lorazepam; she knows not to take both in the same night and is unable to sleep without one of them Assessment & Plan (05/31/2019 2:25 PM EDT): Nausea -- Long history of nausea that seems to be multifactorial, related to delayed gastric emptying, her carcinoid tumor, treatment with octreotide, +/- GERD, constipation. Zyprexa tried twice, too sedating though is helpful for nausea. Risperidone also too sedating. -- Reglan successfully tapered off - find phenergen prescribed by her pcp to help, she will continue using this prn -- continue marinol 20 mg po QID (decided to use this medication rather than medical marajuana) Using less of this at times. --continue ativan (0.5 mg) prn nausea, although told her to use sparingly- currently using an average of 2 doses per day. -- had been doing well with this symptom, using less medication by putting it out of her mind -- today she is struggling more with her nausea as she is trying to stop drinking sugary drinks during the day for her health. This is a difficult balance. We discussed how she could make her own tea from casey (fresh) which might help her symptoms but with less sugar. She is going to try this. -- She is also to continue to log her symptoms to better understand the patters so that she can better pace herself. -- Her oncology team is also considering alternative treatments for her cancer that might have fewer side effects. Chronic low back pain s/p back surgery/fusion - using prn percocet (not prescribed by palliative care) Idiopathic neuropathy - continue gabapentin 600/600/1200 gets burning in her feet when she lowers this dose - has decreased duloxetine to 60 mg daily (also for depression); Fatigue - reports that fatigue was not significantly improved with Bipap and back surgery, was very much improved with ritalin -- but now getting worse again. Describes much more functional full days. -- continue ritalin to 10-20 mg po bid (she finds this very helpful, refilled today) -- wonders if her weight is also contributing to her fatigue, plans to follow up with endocrine about thyroid function tests, will also try gentle exercise and pacing to see if this can help -- continue CPAP at night Depression/anxiety- improved since back surgery and with Bipap use, and feeling much better since sob has improved with sarcoid treatment. Told her [facility] could provide her medications -- supportive listening provided today - PC will take over prescribing her duloxetine (her psychiatrist in [facility] has moved). See notes above about our discussion today. - Continue ambien 10mg nightly (she tried tapering this but was unable to sleep) and ativan prn carcinoid episodes and nausea Insomnia - continue ambien unable to sleep well without it -- continue prn ativan, she is mostly using this for nausea Assessment & Plan (05/08/2019 10:05 AM EDT): Nausea -- Long history of nausea that seems to be multifactorial, related to delayed gastric emptying, her carcinoid tumor, treatment with octreotide, +/- GERD, constipation. Zyprexa tried twice, too sedating though is helpful for nausea. Risperidone also too sedating. -- Reglan successfully tapered off - find phenergen prescribed by her pcp to help, she will continue using this prn -- continue marinol 20 mg po QID (decided to use this medication rather than medical marajuana) Using less of this at times. --continue ativan (0.5 mg) prn nausea, although told her to use sparingly- currently using an average of 2 doses per day. -- had been doing well with this symptom, using less medication by putting it out of her mind -- today she is struggling more with her nausea as she is trying to stop drinking sugary drinks during the day for her health. This is a difficult balance. We discussed how she could make her own tea from casey (fresh) which might help her symptoms but with less sugar. She is going to try this. -- She is also going to try and keep a diet log to see if these is any correlation between her diet and her good/bad days. We are trying to help her have more control over her symptoms. Chronic low back pain s/p back surgery/fusion - using prn percocet (not prescribed by palliative care) Idiopathic neuropathy - continue gabapentin 600 tid; gets burning in her feet when she lowers this dose - has increased this back to cymbalta 120 mg daily (also for depression); Discussed that over all her mood is stable at the present time (the dose was increased when her sister was sick). In an effort to curb polypharmacy, and because the 120 dose of cymbalta has not been shown to be more effective than 60 mg daily, I have encouraged her to try deceasing her dose back to 60 mg/day. Fatigue - reports that fatigue was not significantly improved with Bipap and back surgery, was very much improved with ritalin -- but now getting worse again. Describes much more functional full days. -- currently taking gabapentin 1200 mg bid, she is going to try to break this into 600/600/1200 to see if this can improve her morning fatigue -- continue ritalin to 10-20 mg po bid (she finds this very helpful, refilled today) -- wonders if her weight is also contributing to her fatigue, plans to follow up with endocrine about thyroid function tests, will also try gentle exercise and pacing to see if this can help -- continue CPAP at night Depression/anxiety- improved since back surgery and with Bipap use, and feeling much better since sob has improved with sarcoid treatment. Told her [facility] could provide her medications -- supportive listening provided today - PC will take over prescribing her duloxetine (her psychiatrist in [facility] has moved). See notes above about our discussion today. - Continue ambien 10mg nightly (she tried tapering this but was unable to sleep) and ativan prn carcinoid episodes and nausea Insomnia - continue ambien unable to sleep well without it -- continue prn ativan, she is mostly using this for nausea Assessment & Plan (03/27/2019 10:29 AM EDT): Nausea -- Long history of nausea that seems to be multifactorial, related to delayed gastric emptying, her carcinoid tumor, treatment with octreotide, +/- GERD, constipation. Zyprexa tried twice, too sedating though is helpful for nausea. Risperidone also too sedating. -- Reglan successfully tapered off - find phenergen prescribed by her pcp to help, she will continue using this prn -- continue marinol 20 mg po QID (decided to use this medication rather than medical marajuana) Using less of this at times. --continue ativan (0.5 mg) prn nausea, although told her to use sparingly- currently using an average of 2 doses per day. -- overall doing well with this symptom, using less medication by putting it out of her mind Chronic low back pain s/p back surgery/fusion - using prn percocet (not prescribed by palliative care) Idiopathic neuropathy - continue gabapentin 600 tid; gets burning in her feet when she lowers this dose - continue cymbalta 60 mg daily (also for depression); Fatigue - reports that fatigue was not significantly improved with Bipap and back surgery, was very much improved with ritalin -- but now getting worse again. Describes much more functional full days. -- she has been able to lower her gabapentin to 600 tid -- increase ritalin to 10-20 mg po bid (she finds this very helpful, refilled today) -- wonders if her weight is also contributing to her fatigue, plans to follow up with endocrine about thyroid function tests, will also try gentle exercise and pacing to see if this can help -- discussed that gabapentin may be making fatigue worse, she does not want to taper this due to sever neuropathic pain in her legs, will continue to follow and assess her options -- continue CPAP at night Depression/anxiety- improved since back surgery and with Bipap use, and feeling much better since sob has improved with sarcoid treatment. Told her pall care could provide her medications -- supportive listening provided today - PC will take over prescribing her duloxetine (her psychiatrist in [facility] has moved). She reduced duloxetine to 60mg daily with stable mood - Continue ambien 10mg nightly (she is thinking about stopping this) and ativan prn carcinoid episodes and nausea Insomnia - continue ambien unable to sleep well without it -- continue prn ativan, she is mostly using this for nausea Assessment & Plan (02/12/2019 3:11 PM EDT): Nausea -- Long history of nausea that seems to be multifactorial, related to delayed gastric emptying, her carcinoid tumor, treatment with octreotide, +/- GERD, constipation. Zyprexa tried twice, too sedating though is helpful for nausea. Risperidone also too sedating. -- Reglan successfully tapered off - find phenergen prescribed by her pcp to help, she will continue using this prn -- continue marinol 20 mg po QID (decided to use this medication rather than medical marajuana) Using less of this at times. --continue ativan (0.5 mg) prn nausea, although told her to use sparingly- currently using an average of 2 doses per day. -- overall doing well with this symptom, using less medication by putting it out of her mind Chronic low back pain s/p back surgery/fusion - using prn percocet (not prescribed by palliative care) Idiopathic neuropathy - continue gabapentin 600 tid; gets burning in her feet when she lowers this dose - continue cymbalta 60 mg bid (also for depression); Fatigue - reports that fatigue was not significantly improved with Bipap and back surgery, was very much improved with ritalin -- but now getting worse again. Describes much more functional full days. -- she has been able to lower her gabapentin to 600 tid -- increase ritalin to 10 mg po bid (she finds this very helpful, refilled today) -- wonders if her weight is also contributing to her fatigue, plans to follow up with endocrine about thyroid function tests, will also try gentle exercise and pacing to see if this can help -- discussed that gabapentin may be making this worse, she does not want to taper this due to sever neuropathic pain in her legs, will continue to follow and assess her options Depression/anxiety- improved since back surgery and with Bipap use, and feeling much better since sob has improved with sarcoid treatment. Told her pall care could provide her medications -- supportive listening provided today - PC will take over prescribing her duloxetine (her psychiatrist in [facility] has moved). She reduced duloxetine to 60mg daily with stable mood - Continue ambien 10mg nightly and ativan prn carcinoid episodes and nausea Insomnia - continue ambien unable to sleep well without it -- continue prn ativan, she is mostly using this for nausea Assessment & Plan (12/20/2018 5:03 PM EDT): Nausea -- Long history of nausea that seems to be multifactorial, related to delayed gastric emptying, her carcinoid tumor, treatment with octreotide, +/- GERD, constipation. Zyprexa tried twice, too sedating though is helpful for nausea. Risperidone also too sedating. -- Reglan successfully tapered off - find phenergen prescribed by her pcp to help, she will continue using this prn -- continue marinol 20 mg po QID (decided to use this medication rather than medical marajuana) Using less of this at times. --continue ativan (0.5 mg) prn nausea, although told her to use sparingly- currently using an average of 2 doses per day. -- overall doing well with this symptom, using less medication by putting it out of her mind Chronic low back pain s/p back surgery/fusion - using prn percocet (not prescribed by palliative care) Idiopathic neuropathy - continue gabapentin 600 tid; gets burning in her feet when she lowers this dose - continue cymbalta 60 mg bid (also for depression); Fatigue - reports that fatigue was not significantly improved with Bipap and back surgery, was very much improved with ritalin -- but now getting worse again. Describes much more functional full days. -- she has been able to lower her gabapentin to 600 tid -- increase ritalin to 10 mg po bid (she finds this very helpful, refilled today) Depression/anxiety- improved since back surgery and with Bipap use, and feeling much better since sob has improved with sarcoid treatment. Told her pall care could provide her medications -- supportive listening provided today - PC will take over prescribing her duloxetine (her psychiatrist in [facility] has moved). She reduced duloxetine to 60mg daily with stable mood - Continue ambien 10mg nightly and ativan prn carcinoid episodes and nausea Insomnia - continue ambien unable to sleep well without it -- continue prn ativan Assessment & Plan (06/21/2018 5:54 PM EDT): Nausea -- Long history of nausea that seems to be multifactorial, related to delayed gastric emptying, her carcinoid tumor, treatment with octreotide, +/- GERD, constipation. Zyprexa tried twice, too sedating though is helpful for nausea. Risperidone also too sedating. -- Reglan successfully tapered off - find phenergen prescribed by her pcp to help, she will continue using this prn -- continue marinol 20 mg po QID (decided to use this medication rather than medical marajuana) --continue ativan (0.5 mg) prn nausea, although told her to use sparingly- currently using an average of 2 doses per day. -- overall doing well with this symptom, using less medication by putting it out of her mind Chronic low back pain s/p back surgery/fusion - using prn percocet (not prescribed by palliative care) Idiopathic neuropathy - continue gabapentin 600 tid; gets burning in her feet when she lowers this dose - continue cymbalta 60 mg bid (also for depression); Fatigue - reports that fatigue was not significantly improved with Bipap and back surgery, but is now very much improved with ritalin. Describes much more functional full days. -- she has been able to lower her gabapentin to 600 tid -continu ritalin 5 mg po bid (she finds this very helpful, refilled today) Depression/anxiety- improved since back surgery and with Bipap use, and feeling much better since sob has improved with sarcoid treatment. Told her [facility] could provide her medications -- supportive listening provided today - PC will take over prescribing her duloxetine (her psychiatrist in [facility] has moved). She reduced duloxetine to 60mg daily with stable mood - Continue ambien 10mg nightly (given script) and ativan prn carcinoid episodes and nausea Insomnia - continue ambien unable to sleep well without it -- continue prn ativan Assessment & Plan (05/08/2018 4:42 PM EDT): Nausea -- Long history of nausea that seems to be multifactorial, related to delayed gastric emptying, her carcinoid tumor, treatment with octreotide, +/- GERD, constipation. Zyprexa tried twice, too sedating though is helpful for nausea. Risperidone also too sedating. -- Reglan successfully tapered off - find phenergen prescribed by her pcp to help, she will continue using this prn -- continue marinol 20 mg po QID (decided to use this medication rather than medical marajuana) --continue ativan (0.5 mg) prn nausea, although told her to use sparingly- currently using an average of 2 doses per day. -- encouraged to keep a log of her symptoms, diet, routine. I was struck by how well she reported feeling today in contrast to Tuesday and wonder if there is any pattern to her symptoms (they are noted to get worse prior to her octreotide, though would expect them to be worse today, not better) Chronic low back pain s/p back surgery/fusion - using prn percocet (not prescribed by palliative care) Idiopathic neuropathy - continue gabapentin 600 tid; gets burning in her feet when she lowers this dose - continue cymbalta 60 mg bid (also for depression); Fatigue - reports that fatigue was not significantly improved with Bipap and back surgery, but is now very much improved with ritalin. Describes much more functional full days. -- she has been able to lower her gabapentin to 600 tid -continu ritalin 5 mg po bid (she finds this very helpful, refilled today) Depression/anxiety- improved since back surgery and with Bipap use, and feeling much better since sob has improved with sarcoid treatment. Told her [facility] could provide her medications -- supportive listening provided today - PC will take over prescribing her duloxetine (her psychiatrist in [facility] has moved). She reduced duloxetine to 60mg daily with stable mood - Continue ambien 10mg nightly (given script) and ativan prn carcinoid episodes and nausea Insomnia - continue ambien unable to sleep well without it -- continue prn ativan Assessment & Plan (03/27/2018 6:11 PM EDT): Nausea -- Long history of nausea that seems to be multifactorial, related to delayed gastric emptying, her carcinoid tumor, treatment with octreotide, +/- GERD, constipation. Zyprexa tried twice, too sedating though is helpful for nausea. Risperidone also too sedating. -- Reglan successfully tapered off - find phenergen prescribed by her pcp to help, she will continue using this prn -- continue marinol 20 mg po QID (decided to use this medication rather than medical marajuana) -- will cotinue ambien for insomnia --continue ativan (0.5 mg) prn nausea, although told her to use sparingly- currently using 4-5 times per week; new prescription given today -- she is using up to three times daily to cope with anxiety related to her new/recurrently carcinoid symptoms, new scan results, and her sister's surgery Chronic low back pain s/p back surgery/fusion - using prn percocet (not prescribed by palliative care) Idiopathic neuropathy - continue gabapentin 600 tid; gets burning in her feet when she lowers this dose - continue cymbalta 60 mg bid (also for depression); renewed today as she ran out 10 days ago Fatigue - reports that fatigue was not significantly improved with Bipap and back surgery, but is now very much improved with ritalin. Describes much more functional full days. -- she has been able to lower her gabapentin to 600 tid -- Discussed we may try to modify other sedating medications at next visits which she is open to. -continue trial of ritalin 5 mg po bid (she finds this very helpful, refilled today) Depression/anxiety- improved since back surgery and with Bipap use. Told her [facility] could provide her medications -- supportive listening provided today - PC will take over prescribing her duloxetine (her psychiatrist in [facility] has moved). She reduced duloxetine to 60mg daily with stable mood - Continue ambien 10mg nightly (given script) and ativan prn carcinoid episodes and nausea - may modify in weeks to come Insomnia - continue ambien, unable to sleep well without it, but will consider trial without once she has the medical marijuana as she feels this may help her sleep. Assessment & Plan (12/10/2017 2:29 PM EDT): Nausea -- Long history of nausea that seems to be multifactorial, related to delayed gastric emptying, her carcinoid tumor, treatment with octreotide, +/- GERD, constipation. Zyprexa tried twice, too sedating though is helpful for nausea. Risperidone also too sedating. -- Reglan successfully tapered off -- continue marinol 20 mg po QID (decided to use this medication rather than medical marajuana) -- will cotinue ambien for insomnia --continue ativan (0.5 mg) prn nausea, although told her to use sparingly- currently using 4-5 times per week Chronic low back pain s/p back surgery/fusion - using prn percocet (not prescribed by palliative care) Idiopathic neuropathy - continue gabapentin 600 tid; gets burning in her feet when she lowers this dose - continue cymbalta 60 mg bid (also for depression) Fatigue - reports that fatigue was not significantly improved with Bipap and back surgery, but is now very much improved with ritalin. Describes much more functional full days. -- she has been able to lower her gabapentin to 600 tid -- Discussed we may try to modify other sedating medications at next visits which she is open to. -continue trial of ritalin 5 mg po bid (she finds this very helpful) Depression/anxiety- improved since back surgery and with Bipap use. Told her [facility] could provide her medications -- supportive listening provided today - PC will take over prescribing her duloxetine (her psychiatrist in [facility] has moved). She reduced duloxetine to 60mg daily with stable mood - Continue ambien 10mg nightly (given script) and ativan prn carcinoid episodes and nausea - may modify in weeks to come Insomnia - continue ambien, unable to sleep well without it, but will consider trial without once she has the medical marijuana as she feels this may help her sleep. Assessment & Plan (07/25/2017 8:14 PM EST): Nausea -- Long history of nausea that seems to be multifactorial, related to delayed gastric emptying, her carcinoid tumor, treatment with octreotide, +/- GERD, constipation. Zyprexa tried twice, too sedating though is helpful for nausea. Risperidone also too sedating. -- Reglan successfully reduced to 20mg daily at last visit w/o increased nausea -- continue marinol 20 mg po QID (d/c when she starts medical marijuana) -- awaiting her medical marijuana card should be set in 2 weeks hoping that dispensary will provide guidance about quantity frequency. We discussed trying it at home at a time off of work to see how it impacts her. -- will d/c marinol and consider d/c of ambien as well to try to minimize cumulative sedatives. --continue ativan (0.5 mg) prn nausea, although told her to use sparingly- currently using 4-5 times per week Chronic low back pain s/p back surgery/fusion - using prn percocet (not prescribed by palliative care) Idiopathic neuropathy - continue gabapentin 600 tid; gets burning in her feet when she lowers this dose - continue cymbalta 60 mg bid (also for depression) Fatigue - reports that fatigue was not significantly improved with Bipap and back surgery, but is now very much improved with ritalin. Describes much more functional full days. -- she has been able to lower her gabapentin to 600 tid -- Discussed we may try to modify other sedating medications at next visits which she is open to. -continue trial of ritalin 5 mg po bid Depression/anxiety- improved since back surgery and with Bipap use. Told her [facility] could provide her medications -- supportive listening provided today - PC will take over prescribing her duloxetine (her psychiatrist in [facility] has moved). She reduced duloxetine to 60mg daily with stable mood - Continue ambien 10mg nightly (given script) and ativan prn carcinoid episodes and nausea - may modify in weeks to come Insomnia - continue ambien, unable to sleep well without it, but will consider trial without once she has the medical marijuana as she feels this may help her sleep. Assessment & Plan (06/27/2017 4:52 PM EDT): Nausea -- Long history of nausea that seems to be multifactorial, related to delayed gastric emptying, her carcinoid tumor, treatment with octreotide, +/- GERD, constipation. Zyprexa tried twice, too sedating though is helpful for nausea. Risperidone also too sedating. -- We discussed that we will decrease her reglan give the EPS risk over time. She is currently taking reglan 20 mg bid with no adverse effects on her nausea; pt well educated in risks and signs of EPS; Finds that reglan is the most helpful for her nausea. Also discussed increased risk for serotonin syndrome with Chacha Lawrence (with reglan and cymbalta). Symptoms reviewed. -- continue marinol 20 mg po QID (refilled today) --will support her in trying medical marijuana- she will look for a cocoa powder mixer operator close to home in [place]. --continue ativan (0.5 mg) prn nausea, although told her to use sparingly- currently using 4-5 times per week Chronic low back pain s/p back surgery/fusion - using prn percocet (not prescribed by palliative care) Idiopathic neuropathy - continue gabapentin 600 tid; gets burning in her feet when she lowers this dose - continue cymbalta 60 mg bid (also for depression) Fatigue - reports that fatigue was not significantly improved with Bipap and back surgery -- she has been able to lower her gabapentin to 600 tid -- interested in trying a stimulant to see if this can help fatigue, we discussed the pros and cons of Ritalin in this setting, also my concerns that she is on a lot of sedating medication, and adding a stimulant seems less strategic than lowering her medications. Unfortunately, she has been on these medications for a long time and is not sure how she would cope without them. - trial of ritalin 5 mg po bid (she has some baseline HTN, will start with a low dose and monitor for side effects). Depression/anxiety- improved since back surgery and with Bipap use. Told her [facility] could provide her medications -- supportive listening provided today - PC will take over prescribing her duloxetine (her psychiatrist in [facility] has moved). Suggested decreasing dose from 60 mg bid to 60 mg daily, as uptodate cites no additional improvement with the higher dose. She will decrease the dose this month and observe her mood. -- the ritalin added for fatigue may also help with mood - Continue ambien 10mg nightly (given script) and ativan prn carcinoid episodes and nausea Insomnia - continue ambien, unable to sleep well without it Assessment & Plan (06/01/2017 6:51 PM EDT): Nausea -- Long history of nausea that seems to be multifactorial, related to delayed gastric emptying, her carcinoid tumor, treatment with octreotide, +/- GERD, constipation. Zyprexa tried twice, too sedating though is helpful for nausea. Risperidone also too sedating. -- We discussed that we will decrease her reglan give the EPS risk over time. This month she has decreased reglan down to 20 mg bid with no adverse effects on her nausea; pt well educated in risks and signs of EPS; Finds that reglan is the most helpful for her nausea. Also discussed increased risk for serotonin syndrome with Chacha Lawrence (with reglan and cymbalta). Symptoms reviewed. --will support her in trying medical marijuana- she will look for a cocoa powder mixer operator close to home in [place]. --continue ativan (0.5 mg) prn nausea, although told her to use sparingly- currently using 4-5 times per week Chronic low back pain s/p back surgery/fusion - using prn percocet (not prescribed by palliative care) Idiopathic neuropathy - continue gabapentin 600 tid; gets burning in her feet when she lowers this dose - continue cymbalta 60 mg bid (also for depression) Fatigue - improved with Bipap and back surgery (she has been able to lower her gabapentin to 600 tid) - worse today in setting of her Bipap machine breaking, she is waiting for it to be repaired. Depression/anxiety- improved since back surgery and with Bipap use. Told her [facility] could provide her medications -- supportive listening provided today - continue duloxetine 120mg daily - Continue ambien 10mg nightly (given script) and ativan prn carcinoid episodes and nausea Insomnia - continue ambien, unable to sleep well without it Assessment & Plan (03/21/2017 2:49 PM EDT): Nausea -- Long history of nausea that seems to be multifactorial, related to delayed gastric emptying, her carcinoid tumor, treatment with octreotide, +/- GERD, constipation. Zyprexa tried twice, too sedating though is helpful for nausea. Risperidone also too sedating. -- We discussed that we will decrease her reglan give the EPS risk over time. This month she has decreased reglan down to 20 m g bid with no adverse effects on her nausea; pt well educated in risks and signs of EPS; Finds that reglan is the most helpful for her nausea. Also discussed increased risk for serotonin syndrome with Chacha Lawrence (with reglan and cymbalta). Symptoms reviewed. -- agree with increase in marinol to 10-20 mg po q 6h (prescribed by Dr. [place]) -- discussed use of marajuana in place of marinol again today. --trial of ativan for nausea, (0.5 mg) she has found this helpful and will use as a supplement to her other meds - currently using 3- 4 times per week -- Dr. [place] to investigate alternatives to octreotide, which is likely contributing to her symptoms Chronic low back pain s/p back surgery/fusion - using prn percocet (not prescribed by palliative care) Idiopathic neuropathy -- continue gabapentin 600 tid; gets burning in her feet when she lowers this dose - continue cymbalta 60 mg bid (also for depression) Fatigue - improved with Bipap and back surgery (she has been able to lower her gabapentin to 600 tid - worse today in setting of her Bipap machine breaking, she is waiting for it to be repaired. Depression, improved since back surgery and with Bipap use -- supportive listening provided today - continue cymbalta Insomnia - continue manohar, unable to sleep well without it Assessment & Plan (12/01/2016 5:01 AM EDT): Nausea -- Long history of nausea that seems to be multifactorial, related to delayed gastric emptying, her carcinoid tumor, treatment with octreotide, +/- GERD, constipation. Zyprexa tried twice, too sedating though is helpful for nausea. Risperidone also too sedating. -- We discussed that we will decrease her reglan give the EPS risk over time. This month she will first decrease to 15 mg tid, then down to 15 mg bid; pt well educated in risks and signs of EPS; discussed again today. Finds that reglan is the most helpful for her nausea. Also discussed increased risk for serotonin syndrome with Chacha Lawrence (with reglan and cymbalta). Symptoms reviewed. -- continue marinol 10 mg, will increase frequency to qid given her reglan taper -- discussed use of marajuana in place of marinol; she has been looking into this and has found it helpful. -- continue to look for alternatives to casey satya. --trial of ativan for nausea, (0.5 mg) she has found this helpful and will use as a supplement to her other meds -- Dr. [place] to investigate alternatives to octreotide, which is likely contributing to her symptoms Chronic low back pain s/p back surgery/fusion - using prn percocet (not prescribed by palliative care) Idiopathic neuropathy -- continue gabapentin 600 tid; gets burning in her feet when she lowers this dose - continue cymbalta 60 mg bid (also for depression) Fatigue - improved with Bipap and back surgery (she has been able to lower her gabapentin to 600 tid - worse in the past few days, she will monitor symptoms to see if this is related to spreading out octreotide treatment (per Dr. [place]). Depression, improved since back surgery and with Bipap use - continue cymbalta Insomnia - continue ambien, unable to sleep well without it - overall in good spirits today Assessment & Plan (11/02/2016 10:30 AM EST): Nausea -- Long history of nausea that seems to be multifactorial, related to delayed gastric emptying, her carcinoid tumor, treatment with octreotide, +/- GERD, constipation. Zyprexa tried twice, too sedating though is helpful for nausea. -- Sameera Lawrence is requesting increased dose of reglan to 20 mg q 8 hrs; pt well educated in risks and signs of EPS; discussed again today. Finds that reglan is the most helpful for her nausea. Also discussed increased risk for serotonin syndrome with Chacha Lawrence (with reglan and cymbalta). Symptoms reviewed. -- trial of risperidone for nausea, will start with 0.5mg po qhs, if not sedating, can increase to BID -- continue marinol 10 mg po tid, discussed use of marajuana in place of marinol; she has been looking into this and has found it helpful. -- continue to look for alternatives to casey satya. She is aware that each can contains roughly 9 teaspoons of sugar. She is going to try casey Kombucha or tea as alternatives. Chronic low back pain s/p back surgery/fusion - using prn percocet (not prescribed by palliative care) Idiopathic neuropathy -- continue gabapentin 600 tid; gets burning in her feet when she lowers this dose - continue cymbalta 60 mg bid (also for depression) Fatigue - improved with Bipap and back surgery (she has been able to lower her gabapentin to 600 tid - worse in the past few days, she will monitor symptoms to see if this is related to spreading out octreotide treatment (per Dr. [place]). Depression, improved since back surgery and with Bipap use - continue cymbalta Insomnia - continue ambien, unable to sleep well without it Assessment & Plan (10/05/2016 11:20 AM EST): Nausea -- Long history of nausea that seems to be multifactorial, related to delayed gastric emptying, her carcinoid tumor, treatment with octreotide, +/- GERD, constipation. -- continue reglan 10 mg po q ac and HS; pt well educated in risks and signs of EPS -- trial of zyprexa 1.25-2.5 mg po qhs (will start with low dose due to concurred reglan). She would like to give this a try this month (filled the prescription last month but did not take it). -- d/c ambien at night (given addition of zyprexa) -- continue marinol 10 mg po tid, discussed use of marajuana in place of marinol; she has been looking into this and has found it helpful. -- if she experiences sedation with zyprexa, would try risperidone next for nausea (we discussed this today) -- look for alternatives to casey satya. She currently drinks 4 cans per day, which contains roughly 38 teaspoons of sugar. She is going to try casey Kombucha as a possible alternative. Chronic low back pain s/p back surgery/fusion - using prn percocet (not prescribed by palliative care) Idiopathic neuropathy -- continue gabapentin 600 tid - continue cymbalta 60 mg bid (also for depression) Fatigue - improved with Bipap and back surgery (she has been able to lower her gabapentin to 600 tid Depression, improved since back surgery and with Bipap use - continue cymbalta Insomnia - d/c ambien - trial of zyprexa (which may also help with nausea) Assessment & Plan (09/08/2016 4:26 PM EST): Nausea -- Long history of nausea that seems to be multifactorial, related to delayed gastric emptying, her carcinoid tumor, treatment with octreotide, +/- GERD, constipation. -- decrease reglan from 15 mg tid to 10 mg po q ac and HS; pt well educated in risks and signs of EPS -- trial of zyprexa 2.5 mg po qhs (will start with low dose due to concurred reglan) -- d/c ambien at night (given addition of zyprexa) -- continue marinol 10 mg po tid, discussed use of marajuana in place of marinol at some point, to to investigate this option further. -- if she experiences sedation with zyprexa, would try risperidone next for nausea -- consider medical marajuana Chronic low back pain s/p back surgery/fusion - using prn percocet (not prescribed by palliative care Idiopathic neuropathy -- continue gabapentin 600 tid - continue cymbalta 60 mg bid (also for depression) Fatigue - improved with Bipap and back surgery (she has been able to lower her gabapentin to 600 tid Depression, improved since back surgery and with Bipap use - continue cymbalta Insomnia - d/c ambien - trial of zyprexa (which may also help with nausea) Hyperlipidemia 05/19/2016 Hypertensive disorder 01/31/2013 Overview (10/19/2014): Hypertensive disorder Malignant neuroendocrine neoplasm 11/27/2012 Overview (05/07/2016): Carcinoid tumor IMO update Assessment & Plan (06/19/2020 7:56 PM EDT): Cleared for treatment today with Octreotide LAR. Assessment & Plan (02/04/2016 3:12 PM EDT): Mrs. Infante is a 60 year old female with an elevated 5HIAA and chromograin A as well [...] octreotide (sandostatin) which she is tolerating well and she has felt better on this overall although she continues to have intermittent symptoms of bowel cramps and sudden massive diarrhea, sweats, and nausea. Nausea is still a persistent symptom. She had a better last month. Hopefully, this will continue going forward. Current Treatment and Therapy Plans OCTREOTIDE (SANDOSTATIN LAR ) & OCTREOTIDE (SANDOSTATIN LAR )* Plan Start Date: 11/29/2016 Plan Provider:Kaden Au, DO Linked Problems Malignant neuroendocrine hannah plasm Treatment Medications No medications scheduled. Past Treatment and Therapy Plans Oncology Therapy Plan Plan Name Start Date Discontinue Date Treatment Medications Discontinue Reason Plan Provider OCTREOTIDE (SANDOSTATIN LAR ) 12/17/2015 11/29/2016 No medications scheduled. a. Therapy Complete Michael [place] MD
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
--- OUTSIDE RECORDS SUMMARY | 2025-05-02 11:09 | XMS_ITS | Clinical Summary ---
Author Organization [facility] Address [address] [place] [address] Care Team Providers Care Provider Engagement Executive Name Role Phone Daryl Strong MD Primary Care Provider [phone] Allergies Active Allergy Reactions Criticality Noted Date [...] 6 hours) as needed. for nausea Active Social History Tobacco Use Types Packs/Day Years [...] Health Maintenance Due Date Last Done Comments Advance Care Planning 1955 Hepatitis C Virus Screening 1955 DTaP/Tdap/Td Vaccines [...] patient's age to complete this topic Insurance [facility] OUT OF [facility] PPO MEDICARE PART A & B Care Teams Provider Engagement Executive Relationship Specialty Start Date End Date Daryl Strong MD [address] [place] [id number] PCP - General Internal Medicine 12/14/24
== END 2025-05-02 10:53 | disposition home or self-care (01) ==
PROVIDERS: PCP Internal Medicine; Visit Provider Hospitalist
DX: G47.33 Obstructive sleep apnea (adult) (pediatric) (principal); J45.40 Moderate persistent asthma, uncomplicated; D3A.00 Benign carcinoid tumor of unspecified site; R40.0 Somnolence; I27.20 Pulmonary hypertension, unspecified; E04.1 Nontoxic single thyroid nodule
CPT/HCPCS: 99214